=== PATIENT | male | born 1945 | race Caucasian/White ===

== ENCOUNTER → 2016-12-06 | Outpatient (REF) | payer MEDICARE ==
[~2016-12-06] MED LIST: /THIA10TA OR; ACET65TA PO; ASPI81TA83 PO; CHLORTHALIDONE PO; FOLI1TAB OR; HYDR25TA8 PO; LISI5TAB PO; MULTIVIT PO; OYST500T PO; VITAMIN D2; neosporin TOP
[2016-12-06 11:48] LABS: BASO # 0.1 K/mm3 (0.0-0.2); EOS # 0.3 K/mm3 (0.0-0.50); EOS % 4.6 % (0.0-3.0); LARGE UNSTAINED CELL # 0.1 K/mm3 (0.0-0.4); LARGE UNSTAINED CELL % 2.2 % (0.0-4.0); LYMPH # 1.5 K/mm3 (1.5-4.5); LYMPH % 21.9 % (24.0-44.0); MEAN CORPUSCULAR HEMOGLOBIN 31.4 pg (27.0-33.0); MEAN CORPUSCULAR VOLUME 92.3 fl (80.0-96.0); MONO # 0.5 K/mm3 (0.0-0.8); MONO % 8.5 % (0.0-5.0); NEUTROPHILS # 3.8 K/mm3 (1.8-7.7); NEUTROPHILS % 61.7 % (36.0-66.0); PLATELET COUNT, AUTOMATED 244 k/mm3 (150-450); RED CELL DISTRIBUTION WIDTH 13.1 % (11.5-14.5); WHITE BLOOD COUNT 6.1 K/mm3 (4.0-10.0)
[2016-12-06 13:08] LABS: ALBUMIN 3.7 GM/DL (3.2-5.2); ALBUMIN/GLOBULIN RATIO 1.42 (1.00-1.93); ALKALINE PHOSPHATASE 60 U/L (45-117); ALT/SGPT 24 U/L (12-78); ANION GAP 7 MEQ/L (8-16); AST/SGOT 18 U/L (15-37); BILIRUBIN,TOTAL 0.5 MG/DL (0.2-1.0); BLOOD UREA NITROGEN 15 MG/DL (7-18); CALCIUM LEVEL 8.9 MG/DL (8.8-10.2); CARBON DIOXIDE LEVEL 31 MEQ/L (21-32); CHLORIDE LEVEL 96 MEQ/L (98-107); CHOLESTEROL LEVEL 158 MG/DL (<200); CREATININE FOR GFR 0.74 MG/DL (0.70-1.30); GLOMERULAR FILTRATION RATE > 60.0 (>42); GLUCOSE, FASTING 101 MG/DL (83-110); POTASSIUM SERUM 3.8 MEQ/L (3.5-5.1); SODIUM LEVEL 134 MEQ/L (136-145); TOTAL PROTEIN 6.3 GM/DL (6.4-8.2); TRIGLYCERIDES LEVEL 65 MG/DL (<150)
== END ==
LOC: M SFHCPLAZ 08:43
PROVIDERS: ATTEND Family Medicine
DX: I10 Essential (primary) hypertension (principal); E78.5 Hyperlipidemia, unspecified; R73.01 Impaired fasting glucose; Z12.5 Encounter for screening for malignant neoplasm of prostate
CPT/HCPCS: 36415; 80053; 80061; 81001; 82043; 83036; 85025; G0103

== ENCOUNTER → 2016-12-19 | Outpatient (CLI) | payer MEDICARE ==
[~2016-12-19] MED LIST changes: +ATOR40TA PO; +LIDOCAINE 2% INJ 100 MG/5 ML SDV (FOR ANES.) As Ordered ONE; +NS 1,000 ML IV ONE; +PROPOFOL 200 MG/20 ML VIAL As Ordered ONE
--- NOTE | 2016-12-19 09:24 | ROOR ---
Patient Name: Magda Epps Procedure Date: 12/19/2016 9:09 AM Date of : 1945 Age: 71 Room: [facility] Gender: Male Note Status: Finalized Procedure: Colonoscopy Indications: Screening for colorectal malignant neoplasm Providers: Gt NICHOLSON MD Referring MD: Connor Westfall MD Requesting Provider: Medicines: Monitored Anesthesia Care Complications: No immediate complications. Procedure: Pre-Anesthesia Assessment: - The heart rate, respiratory rate, oxygen saturations, blood pressure, adequacy of pulmonary ventilation, and response to care were monitored throughout the procedure. The Colonoscope was introduced through the anus and advanced to the cecum, identified by appendiceal orifice and ileocecal valve. The colonoscopy was performed without difficulty. The patient tolerated the procedure well. The quality of the bowel preparation was good. Findings: The perianal and digital rectal examinations were normal. Internal hemorrhoids were found during retroflexion. The hemorrhoids were medium-sized. Multiple medium-mouthed diverticula were found in the sigmoid colon. The entire examined colon appeared normal on direct and retroflexion views. Impression: - Internal hemorrhoids. - Moderate diverticulosis in the sigmoid colon. - The entire examined colon is normal on direct and retroflexion views. - No specimens collected. Recommendation: - Repeat colonoscopy in 10 years for screening purposes. Gt Nicholson MD Gt NICHOLSON MD 12/19/2016 9:24:25 AM This report has been signed electronically. Number of Addenda: 0 Note Initiated On: 12/19/2016 9:09 AM Estimated Blood Loss: Estimated blood loss: none.
[2016-12-19 10:03] VITALS: BP 138/63
== END | disposition home or self-care (01) ==
LOC: M OPP 08:06
PROVIDERS: ATTEND Internal Medicine Gastroenterology
DX: Z12.11 Encounter for screening for malignant neoplasm of colon (principal); K64.8 Other hemorrhoids; K57.30 Diverticulosis of large intestine without perforation or abscess without bleeding; I10 Essential (primary) hypertension; E78.5 Hyperlipidemia, unspecified; J44.9 Chronic obstructive pulmonary disease, unspecified; E87.1 Hypo-osmolality and hyponatremia; Z87.891 Personal history of nicotine dependence; Z80.42 Family history of malignant neoplasm of prostate; Z80.8 Family history of malignant neoplasm of other organs or systems; Z79.82 Long term (current) use of aspirin; Z79.899 Other long term (current) drug therapy

== ENCOUNTER → 2017-08-26 | Outpatient (REF) | payer MEDICARE ==
[2017-08-26 12:14] LABS: BASO % 0.3 % (0.0-1.0); EOS % 0.5 % (0.0-3.0); HEMATOCRIT 42.6 % (42.0-52.0); HEMOGLOBIN 14.6 g/dl (14.0-18.0); IMMATURE GRANULOCYTE % 0.5 % (0-0); LYMPH # 1.1 10^3/uL (1.5-4.5); LYMPH % 16.9 % (24.0-44.0); MEAN CORPUSCULAR HEMOGLOBIN 30.5 pg (27.0-33.0); MEAN CORPUSCULAR HGB CONC 34.3 g/dl (32.0-36.5); MEAN CORPUSCULAR VOLUME 88.9 fl (80.0-96.0); MONO # 0.9 10^3/uL (0.0-0.8); MONO % 14.1 % (0.0-5.0); NEUTROPHILS # 4.3 10^3/uL (1.8-7.7); NEUTROPHILS % 67.7 % (36.0-66.0); PLATELET COUNT, AUTOMATED 213 10^3/uL (150-450); RED BLOOD COUNT 4.79 10^6/uL (4.30-6.10); RED CELL DISTRIBUTION WIDTH 12.7 % (11.5-14.5); WHITE BLOOD COUNT 6.4 10^3/uL (4.0-10.0)
[2017-08-26 12:29] LABS: APPEARANCE, URINE HAZY (CLEAR); BACTERIA, URINE AUTO NEGATIVE (NEGATIVE); BILIRUBIN, URINE AUTO NEGATIVE (NEGATIVE); BLOOD, URINE BLOOD 3+ (NEGATIVE); COLOR, URINE YELLOW (YELLOW); GLUCOSE, URINE (UA) AUTO NEGATIVE (NEGATIVE); KETONE, URINE AUTO NEGATIVE (NEGATIVE); LEUKOCYTE ESTERASE, URINE AUTO TRACE (NEGATIVE); MUCUS, URINE SMALL (NEGATIVE); NITRITE, URINE AUTO NEGATIVE (NEGATIVE); PROTEIN, URINE AUTO 1+ mg/dL (NEGATIVE); RBC, URINE AUTO TNTC /HPF (0-3); SPECIFIC GRAVITY URINE AUTO 1.019 (1.002-1.035); SQUAMOUS EPITHELIAL CELL UR AU 0 /HPF (0-6); UROBILINOGEN, URINE AUTO 0.2 mg/dL (0.0-2.0); WBC, URINE AUTO 42 /HPF (0-3)
[2017-08-26 12:33] LABS: ESTIMATED AVERAGE GLUCOSE 134 MG/DL (60-110); HEMOGLOBIN A1c 6.3 %
[2017-08-26 12:46] LABS: MAU/CREAT RATIO 76.1 MCG/MG (0.0-30.0)
[2017-08-26 13:10] LABS: ALBUMIN 3.5 GM/DL (3.2-5.2); ALBUMIN/GLOBULIN RATIO 1.17 (1.00-1.93); ALKALINE PHOSPHATASE 73 U/L (45-117); ALT/SGPT 23 U/L (12-78); ANION GAP 11 MEQ/L (8-16); AST/SGOT 21 U/L (7-37); BILIRUBIN,TOTAL 0.4 MG/DL (0.2-1.0); BLOOD UREA NITROGEN 20 MG/DL (7-18); CALCIUM LEVEL 8.6 MG/DL (8.8-10.2); CARBON DIOXIDE LEVEL 28 MEQ/L (21-32); CHLORIDE LEVEL 89 MEQ/L (98-107); CREATININE FOR GFR 0.71 MG/DL (0.70-1.30); GLOMERULAR FILTRATION RATE > 60.0 (>42); GLUCOSE, FASTING 110 MG/DL (70-100); POTASSIUM SERUM 3.9 MEQ/L (3.5-5.1); PSA SCREENING 2.48 NG/ML (< 4.0); SODIUM LEVEL 128 MEQ/L (136-145); TOTAL PROTEIN 6.5 GM/DL (6.4-8.2)
== END ==
LOC: M SFHCPLAZ 09:01
DX: I10 Essential (primary) hypertension (principal); R73.01 Impaired fasting glucose; Z12.5 Encounter for screening for malignant neoplasm of prostate; Z79.899 Other long term (current) drug therapy
CPT/HCPCS: 80053

== ENCOUNTER → 2017-09-04 | Outpatient (REF) | payer MEDICARE ==
[2017-09-04 12:34] LABS: OSMOLALITY SERUM 277 MOSM/KG (280-301)
[2017-09-04 12:45] LABS: AMORPHOUS SEDIMENT SMALL (NEGATIVE); APPEARANCE, URINE CLOUDY (CLEAR); BACTERIA, URINE AUTO 1+ (NEGATIVE); BILIRUBIN, URINE AUTO NEGATIVE (NEGATIVE); BLOOD, URINE BLOOD 1+ (NEGATIVE); CALCIUM OXALATE CRYSTALS SMALL; COLOR, URINE YELLOW (YELLOW); GLUCOSE, URINE (UA) AUTO NEGATIVE (NEGATIVE); KETONE, URINE AUTO NEGATIVE (NEGATIVE); LEUKOCYTE ESTERASE, URINE AUTO 2+ (NEGATIVE); NITRITE, URINE AUTO POSITIVE (NEGATIVE); PROTEIN, URINE AUTO NEGATIVE (NEGATIVE); RBC, URINE AUTO 1 /HPF (0-3); SPECIFIC GRAVITY URINE AUTO 1.009 (1.002-1.035); SQUAMOUS EPITHELIAL CELL UR AU 0 /HPF (0-6); UROBILINOGEN, URINE AUTO 0.2 mg/dL (0.0-2.0); WBC, URINE AUTO 44 /HPF (0-3)
[2017-09-04 12:48] LABS: ALBUMIN 3.4 GM/DL (3.2-5.2); ANION GAP 8 MEQ/L (8-16); BLOOD UREA NITROGEN 10 MG/DL (7-18); CALCIUM LEVEL 9.2 MG/DL (8.8-10.2); CARBON DIOXIDE LEVEL 31 MEQ/L (21-32); CHLORIDE LEVEL 95 MEQ/L (98-107); CREATININE FOR GFR 0.65 MG/DL (0.70-1.30); GLOMERULAR FILTRATION RATE > 60.0 (>42); GLUCOSE, FASTING 130 MG/DL (70-100); POTASSIUM SERUM 3.8 MEQ/L (3.5-5.1); SODIUM LEVEL 134 MEQ/L (136-145)
[2017-09-04 12:49] LABS: OSMOLALITY URINE 384 MOSM/KG (500-800)
== END ==
LOC: M SFHCPLAZ 08:32
DX: R31.29 Other microscopic hematuria (principal); I10 Essential (primary) hypertension
CPT/HCPCS: 83930

== ENCOUNTER → 2017-09-09 | Outpatient (REF) | payer MEDICARE ==
[2017-09-10 16:11] LABS: SODIUM, URINE 34 MEQ/L
[2017-09-10 21:18] LABS: SODIUM 24 HOUR URINE 51 MEQ/24HR (40-220); TOTAL VOLUME, URINE 1500 ML
== END ==
LOC: M SFHCPLAZ 09-10 15:37
DX: I10 Essential (primary) hypertension (principal)
CPT/HCPCS: 81050

== ENCOUNTER → 2017-10-23 | Outpatient (CLI) | payer MEDICARE | LOC: M RAD 08:04 | DX: Z12.2 Encounter for screening for malignant neoplasm of respiratory organs (principal); Z87.891 Personal history of nicotine dependence | CPT/HCPCS: G0297 ==

== ENCOUNTER → 2018-01-01 | Outpatient (REF) | payer MEDICARE ==
[2018-01-01 14:11] LABS: ESTIMATED AVERAGE GLUCOSE 137 MG/DL (60-110); HEMOGLOBIN A1c 6.4 %
[2018-01-01 14:16] LABS: ALBUMIN 3.8 GM/DL (3.2-5.2); ALBUMIN/GLOBULIN RATIO 1.36 (1.00-1.93); ALKALINE PHOSPHATASE 76 U/L (45-117); ALT/SGPT 24 U/L (12-78); ANION GAP 6 MEQ/L (8-16); AST/SGOT 17 U/L (7-37); BILIRUBIN,TOTAL 0.2 MG/DL (0.2-1.0); BLOOD UREA NITROGEN 11 MG/DL (7-18); C REACTIVE PROTEIN QUANTITATIV < 0.30 MG/DL (0.00-0.30); CALCIUM LEVEL 9.1 MG/DL (8.8-10.2); CARBON DIOXIDE LEVEL 30 MEQ/L (21-32); CHLORIDE LEVEL 98 MEQ/L (98-107); CHOLESTEROL LEVEL 171 MG/DL (<200); CHOLESTEROL RISK RATIO 2.478 (<5); CPK CREATINE PHOSPHOKINASE 136 U/L (39-308); CREATININE FOR GFR 0.61 MG/DL (0.70-1.30); FREE T4 0.94 NG/DL (0.76-1.46); GLOMERULAR FILTRATION RATE > 60.0 (>42); GLUCOSE, FASTING 92 MG/DL (70-100); HDL CHOLESTEROL 69 MG/DL (>40); LDL CHOLESTEROL 86.6 MG/DL (<100); NON-HDL-C 102 MG/DL; POTASSIUM SERUM 4.5 MEQ/L (3.5-5.1); SODIUM LEVEL 134 MEQ/L (136-145); TOTAL PROTEIN 6.6 GM/DL (6.4-8.2); TRIGLYCERIDES LEVEL 77 MG/DL (<150)
[2018-01-03 14:10] LABS: INSULIN LEVEL 2.8 uIU/mL (2.6-24.9)
== END ==
LOC: M SFHCPLAZ 11:42
DX: E78.5 Hyperlipidemia, unspecified (principal); R73.01 Impaired fasting glucose
CPT/HCPCS: 82550

== ENCOUNTER → 2018-05-08 | Outpatient (CLI) | payer MEDICARE ==
[~2018-05-08] MED LIST changes: -/THIA10TA OR; -ACET65TA PO; -ASPI81TA83 PO; -ATOR40TA PO; -CHLORTHALIDONE PO; -FOLI1TAB OR; -HYDR25TA8 PO; +ISOVUE-370 76% 100ML VIAL (Q9967) As Ordered; -LIDOCAINE 2% INJ 100 MG/5 ML SDV (FOR ANES.) As Ordered ONE; -LISI5TAB PO; -MULTIVIT PO; -NS 1,000 ML IV ONE; -OYST500T PO; -PROPOFOL 200 MG/20 ML VIAL As Ordered ONE; -VITAMIN D2; -neosporin TOP
== END ==
LOC: M RAD 12:46
DX: J44.9 Chronic obstructive pulmonary disease, unspecified (principal); R91.1 Solitary pulmonary nodule; I10 Essential (primary) hypertension
CPT/HCPCS: Q9967

== ENCOUNTER → 2018-05-08 | Outpatient (REF) | payer MEDICARE ==
[2018-05-08 12:41] LABS: ALBUMIN 3.6 GM/DL (3.2-5.2); ALBUMIN/GLOBULIN RATIO 1.33 (1.00-1.93); ALKALINE PHOSPHATASE 79 U/L (45-117); ALT/SGPT 23 U/L (12-78); ANION GAP 9 MEQ/L (8-16); AST/SGOT 16 U/L (7-37); BILIRUBIN,TOTAL 0.3 MG/DL (0.2-1.0); BLOOD UREA NITROGEN 14 MG/DL (7-18); CALCIUM LEVEL 8.7 MG/DL (8.8-10.2); CARBON DIOXIDE LEVEL 30 MEQ/L (21-32); CHLORIDE LEVEL 93 MEQ/L (98-107); GLOMERULAR FILTRATION RATE > 60.0 (>42); GLUCOSE, FASTING 124 MG/DL (70-100); POTASSIUM SERUM 4.3 MEQ/L (3.5-5.1); SODIUM LEVEL 132 MEQ/L (136-145); TOTAL PROTEIN 6.3 GM/DL (6.4-8.2)
== END ==
LOC: M SFHCPLAZ 10:00
DX: I10 Essential (primary) hypertension (principal)

== ENCOUNTER → 2018-05-20 | Outpatient (REF) | payer MEDICARE ==
[2018-05-20 12:12] LABS: BASO # 0.1 10^3/uL (0.0-0.2); BASO % 0.8 % (0.0-1.0); EOS # 0.2 10^3/uL (0.0-0.50); EOS % 2.9 % (0.0-3.0); HEMATOCRIT 43.2 % (42.0-52.0); HEMOGLOBIN 14.8 g/dl (13.5-17.5); IMMATURE GRANULOCYTE % 0.4 % (0-3.0); LYMPH # 0.9 10^3/uL (1.5-4.5); LYMPH % 11.5 % (24.0-44.0); MEAN CORPUSCULAR HEMOGLOBIN 29.8 pg (27.0-33.0); MEAN CORPUSCULAR HGB CONC 34.3 g/dl (32.0-36.5); MEAN CORPUSCULAR VOLUME 86.9 fl (80.0-96.0); MONO # 0.8 10^3/uL (0.0-0.8); MONO % 10.8 % (0.0-5.0); NEUTROPHILS # 5.5 10^3/uL (1.8-7.7); NEUTROPHILS % 73.6 % (36.0-66.0); PLATELET COUNT, AUTOMATED 290 10^3/uL (150-450); RED BLOOD COUNT 4.97 10^6/uL (4.30-6.10); RED CELL DISTRIBUTION WIDTH 13.2 % (11.5-14.5); WHITE BLOOD COUNT 7.5 10^3/uL (4.0-10.0)
[2018-05-20 12:17] LABS: HEMATOCRIT 43.2 % (42.0-52.0)
[2018-05-20 12:22] LABS: AMORPHOUS SEDIMENT LARGE (NEGATIVE); APPEARANCE, URINE CLOUDY (CLEAR); BACTERIA, URINE AUTO 1+ (NEGATIVE); BILIRUBIN, URINE AUTO NEGATIVE (NEGATIVE); BLOOD, URINE BLOOD 2+ (NEGATIVE); COLOR, URINE YELLOW (YELLOW); GLUCOSE, URINE (UA) AUTO NEGATIVE (NEGATIVE); KETONE, URINE AUTO NEGATIVE (NEGATIVE); LEUKOCYTE ESTERASE, URINE AUTO 3+ (NEGATIVE); MUCUS, URINE SMALL (NEGATIVE); NITRITE, URINE AUTO POSITIVE (NEGATIVE); PROTEIN, URINE AUTO 1+ mg/dL (NEGATIVE); RBC, URINE AUTO 35 /HPF (0-3); SPECIFIC GRAVITY URINE AUTO 1.011 (1.002-1.035); SQUAMOUS EPITHELIAL CELL UR AU 0 /HPF (0-6); UROBILINOGEN, URINE AUTO 0.2 mg/dL (0.0-2.0); WBC, URINE AUTO TNTC /HPF (0-3)
[2018-05-20 12:30] LABS: ESTIMATED AVERAGE GLUCOSE 131 MG/DL (60-110); HEMOGLOBIN A1c 6.2 %
[2018-05-20 13:05] LABS: ALBUMIN 3.7 GM/DL (3.2-5.2); ALBUMIN/GLOBULIN RATIO 1.28 (1.00-1.93); ALKALINE PHOSPHATASE 89 U/L (45-117); ALT/SGPT 25 U/L (12-78); ANION GAP 10 MEQ/L (8-16); AST/SGOT 18 U/L (7-37); BILIRUBIN,TOTAL 0.4 MG/DL (0.2-1.0); BLOOD UREA NITROGEN 14 MG/DL (7-18); CALCIUM LEVEL 9.1 MG/DL (8.8-10.2); CARBON DIOXIDE LEVEL 30 MEQ/L (21-32); CHLORIDE LEVEL 90 MEQ/L (98-107); GLOMERULAR FILTRATION RATE > 60.0 (>42); GLUCOSE, FASTING 103 MG/DL (70-100); POTASSIUM SERUM 4.3 MEQ/L (3.5-5.1); PSA SCREENING 4.82 NG/ML (< 4.0); SODIUM LEVEL 130 MEQ/L (136-145); TOTAL PROTEIN 6.6 GM/DL (6.4-8.2)
[2018-05-22 10:25] LABS: PRETREATED FOLATE FOR RBCFOL 14.6 NG/ML; RBC FOLATE 709.7 NG/ML (280-791)
[2018-05-23 14:32] LABS: VITAMIN B1 LEVEL WHOLE BLOOD 230.8 nmol/L (66.5-200.0)
== END ==
LOC: M SFHCPLAZ 08:33
DX: R31.0 Gross hematuria (principal); E87.1 Hypo-osmolality and hyponatremia; R73.01 Impaired fasting glucose; Z12.5 Encounter for screening for malignant neoplasm of prostate
CPT/HCPCS: 80053

== ENCOUNTER → 2018-05-22 | Outpatient (REF) | payer MEDICARE ==
[2018-05-22 12:19] LABS: AMORPHOUS SEDIMENT LARGE (NEGATIVE); APPEARANCE, URINE TURBID (CLEAR); BACTERIA, URINE AUTO 1+ (NEGATIVE); BILIRUBIN, URINE AUTO NEGATIVE (NEGATIVE); BLOOD, URINE BLOOD 2+ (NEGATIVE); COLOR, URINE YELLOW (YELLOW); GLUCOSE, URINE (UA) AUTO NEGATIVE (NEGATIVE); KETONE, URINE AUTO NEGATIVE (NEGATIVE); LEUKOCYTE ESTERASE, URINE AUTO 3+ (NEGATIVE); MUCUS, URINE SMALL (NEGATIVE); NITRITE, URINE AUTO POSITIVE (NEGATIVE); PROTEIN, URINE AUTO 1+ mg/dL (NEGATIVE); RBC, URINE AUTO 109 /HPF (0-3); SPECIFIC GRAVITY URINE AUTO 1.012 (1.002-1.035); SQUAMOUS EPITHELIAL CELL UR AU 0 /HPF (0-6); UROBILINOGEN, URINE AUTO 0.2 mg/dL (0.0-2.0); WBC, URINE AUTO TNTC /HPF (0-3)
== END ==
LOC: M SFHCPLAZ 11:25
DX: N41.0 Acute prostatitis (principal)
CPT/HCPCS: 81001

== ENCOUNTER → 2018-06-02 | Outpatient (CLI) | payer MEDICARE | LOC: M RAD 10:14 | DX: R31.0 Gross hematuria (principal); K57.30 Diverticulosis of large intestine without perforation or abscess without bleeding; M47.896 Other spondylosis, lumbar region; N32.89 Other specified disorders of bladder; N21.0 Calculus in bladder | CPT/HCPCS: Q9967 ==

== ENCOUNTER → 2018-06-08 | Outpatient (REF) | payer MEDICARE | LOC: M SMT 17:08 | DX: N32.89 Other specified disorders of bladder (principal) | CPT/HCPCS: 88108 ==

== ENCOUNTER → 2018-07-10 | Outpatient (CLI) | payer MEDICARE ==
[~2018-07-10] MED LIST changes: +/THIA10TA OR; +ACET65TA PO; +ASPI1TAB PO; +ASPI81TA83 PO; +ATOR1TAB19 PO; +ATOR40TA75 PO; +CALC500T49 PO; +CHLO125TA PO; +CHLORTHALIDONE PO; +FOLI1TAB OR; +HYDR25TA8 PO; -ISOVUE-370 76% 100ML VIAL (Q9967) As Ordered; +LISI10TA4 PO; +LISI5TAB PO; +MULT1TAB10 PO; +MULTIVIT PO; +OYST500T PO; +PROAAER10 INH; +VITA100T92 PO; +VITAMIN D2; +neosporin TOP
[2018-07-10 17:18] LABS: ALBUMIN 3.9 GM/DL (3.2-5.2); ALT/SGPT 28 U/L (12-78); BASO # 0.1 10^3/uL (0.0-0.2); BASO % 0.8 % (0.0-1.0); BILIRUBIN,TOTAL 0.3 MG/DL (0.2-1.0); BLOOD UREA NITROGEN 18 MG/DL (7-18); CALCIUM LEVEL 9.1 MG/DL (8.8-10.2); CARBON DIOXIDE LEVEL 34 MEQ/L (21-32); CHLORIDE LEVEL 91 MEQ/L (98-107); CREATININE FOR GFR 0.83 MG/DL (0.70-1.30); EOS # 0.3 10^3/uL (0.0-0.50); GLOMERULAR FILTRATION RATE > 60.0 (>42); GLUCOSE, FASTING 180 MG/DL (70-100); HEMATOCRIT 44.2 % (42.0-52.0); HEMOGLOBIN 14.7 g/dl (13.5-17.5); LYMPH # 1.8 10^3/uL (1.5-4.5); LYMPH % 19.5 % (24.0-44.0); MEAN CORPUSCULAR HEMOGLOBIN 29.3 pg (27.0-33.0); MEAN CORPUSCULAR HGB CONC 33.3 g/dl (32.0-36.5); MEAN CORPUSCULAR VOLUME 88.2 fl (80.0-96.0); MONO # 0.8 10^3/uL (0.0-0.8); MONO % 8.4 % (0.0-5.0); NEUTROPHILS # 6.1 10^3/uL (1.8-7.7); NEUTROPHILS % 67.9 % (36.0-66.0); PLATELET COUNT, AUTOMATED 275 10^3/uL (150-450); POTASSIUM SERUM 3.9 MEQ/L (3.5-5.1); RED BLOOD COUNT 5.01 10^6/uL (4.30-6.10); SODIUM LEVEL 132 MEQ/L (136-145); TOTAL PROTEIN 6.6 GM/DL (6.4-8.2)
[2018-07-10 17:33] LABS: INR 0.93; PARTIAL THROMBOPLASTIN TIME 31.3 SECONDS (25.4-37.6); PROTHROMBIN TIME 12.5 SECONDS (12.1-14.4)
[2018-07-10 19:56] LABS: APPEARANCE, URINE HAZY (CLEAR); BACTERIA, URINE AUTO NEGATIVE (NEGATIVE); BILIRUBIN, URINE AUTO NEGATIVE (NEGATIVE); BLOOD, URINE BLOOD 2+ (NEGATIVE); COLOR, URINE YELLOW (YELLOW); GLUCOSE, URINE (UA) AUTO 1+ mg/dL (NEGATIVE); KETONE, URINE AUTO NEGATIVE (NEGATIVE); LEUKOCYTE ESTERASE, URINE AUTO NEGATIVE (NEGATIVE); MUCUS, URINE SMALL (NEGATIVE); NITRITE, URINE AUTO NEGATIVE (NEGATIVE); PROTEIN, URINE AUTO 1+ mg/dL (NEGATIVE); RBC, URINE AUTO TNTC /HPF (0-3); SPECIFIC GRAVITY URINE AUTO 1.017 (1.002-1.035); SQUAMOUS EPITHELIAL CELL UR AU 0 /HPF (0-6); UROBILINOGEN, URINE AUTO 0.2 mg/dL (0.0-2.0); WBC, URINE AUTO 9 /HPF (0-3)
== END ==
LOC: M SMT 13:28
PROVIDERS: ATTEND Family Medicine
DX: I10 Essential (primary) hypertension (principal); N32.89 Other specified disorders of bladder; R31.0 Gross hematuria

== ENCOUNTER 2018-07-16 11:25 | Day surgery (SDC) | payer MEDICARE ==
[~2018-07-16] VITALS: Ht 172.7 cm; Wt 61.6 kg
[~2018-07-16 11:25] MED LIST changes: +GLYCOPYRROLATE INJ 0.2 MG/ML 2 ML VIAL As Ordered ONE; +LIDOCAINE 2% INJ 100 MG/5 ML SDV (FOR ANES.) As Ordered ONE; +MIDAZOLAM INJ 2 MG/2 ML VIAL (J2250) As Ordered ONE; +NEOSTIGMINE 10 MG/10 ML VIAL (J2710) As Ordered ONE; +ONDANSETRON 4MG/2ML VIAL (J2405) As Ordered ONE; +PROPOFOL 200 MG/20 ML VIAL As Ordered ONE; +ROCURONIUM BROMIDE 50 MG/5 ML VIAL As Ordered ONE; +dexameTHASONE 4 MG/ML 1ML VIAL (J1100) As Ordered ONE; +fentaNYL 100 MCG/2 ML INJECTION (J3010) As Ordered ONE
[2018-07-16] MEDS ORDERED: LR 1,000 ML IV ONE (11:45)
[2018-07-16] MEDS ORDERED: ePHEDrine SULFATE 25 MG/5 ML(5MG/ML) SYRINGE As Ordered ONE (14:47)
[2018-07-16] MEDS ORDERED: fentaNYL 100 MCG/2 ML INJECTION (J3010) As Ordered ONE (14:53)
[2018-07-16] MEDS ORDERED: FUROSEMIDE 100 MG/10 ML VIAL (J1940) As Ordered ONE (15:53)
[2018-07-16] MEDS ORDERED: METOCLOPRAMIDE INJ 10MG/2ML VIAL (J2765) IV PRN (16:45)
[2018-07-16] MEDS ORDERED: LR 1,000 ML IV SCH (16:45)
[2018-07-16] MEDS ORDERED: fentaNYL 100 MCG/2 ML INJECTION (J3010) IV PRN (16:45)
[2018-07-16] MEDS ORDERED: PERCOCET 5MG/325MG TAB PO PRN (16:45)
[2018-07-16] MEDS ORDERED: MEPERIDINE INJ 25 MG/ML VIAL (J2175) IV PRN (16:45)
[2018-07-16] MEDS ORDERED: ONDANSETRON 4MG/2ML VIAL (J2405) IV PRN (16:45)
[2018-07-16] MEDS ORDERED: oxyBUTYnin 5 MG TAB PO PRN (16:45)
[2018-07-16] MEDS ORDERED: ACETAMINOPHEN TAB 650MG DOSE (2X325MG) PO PRN (16:45)
[2018-07-16 19:40] VITALS: BP 104/63
--- NOTE | 2018-07-17 19:35 | RO ---
DATE OF PROCEDURE: 07/16/2018 PREPROCEDURE DIAGNOSIS: Bladder tumor, bladder stones. POSTPROCEDURE DIAGNOSIS: Bladder tumor, bladder stones. PROCEDURE: Cystoscopy, transurethral resection of bladder tumor (greater than 5 cm), cystolitholapaxy, bimanual examination under anesthesia. SURGEON: Nicholas Siddiqui MD [facility]: None. ANESTHESIA: General. OPERATIVE INDICATIONS: This is a 73-year-old male who on recent CT urogram was found to have two large bladder stones as well as a large bladder tumor along the anterior wall. He is brought to the operating room today for the above listed procedure. DESCRIPTION OF PROCEDURE: The patient was brought to the operating room and general anesthesia was induced. Prophylactic antibiotics were infused. He was then placed in the dorsal lithotomy position and then a bimanual digital rectal examination under anesthesia was performed. It was notable for prostate which was about 40 grams. There were no nodules. There were no palpable bladder masses and the bladder was freely mobile. At this point, the patient was prepped and draped in the usual sterile fashion. A rigid cystoscope was inserted into the urethral meatus and advanced to the bladder. The bladder was then thoroughly examined and was notable for two large bladder stones and the very large tumor on the anterior wall of the bladder. The bladder was examined with both the 30 and the 70 degrees lenses. At this point, the cystoscope was removed and a nephroscope was inserted. At this point, a CyberWand was utilized to fragment the bladder stones into tiny pieces and all the stones were suctioned out. Once all the bladder stones were removed, the nephroscope was traded out for a resectoscope. Once the resectoscope was inserted I then utilized it to resect the bladder tumor completely. It did appear that I was able to resect deep enough into the bladder muscle layer. Given the large size of the tumor, as well as bleeding it was difficult to determine whether or not I had completely resected all of the tumor but it did appear that the majority of the tumor was removed. Once that was done all tumor specimens were then removed using the Evelyn evacuator. After all the specimens were removed the coagulation current then utilized to obtain hemostasis. Once satisfied with hemostasis, the resectoscope was removed and an #18-St Lucian Soto catheter was inserted into the bladder. The balloon was filled with 10 mL of sterile water. The catheter then connected to gravity drainage and this marked the conclusion of the procedure. The patient was then taken out of the dorsal lithotomy position, awakened from anesthesia and transported to the recovery room in stable condition. ESTIMATED BLOOD LOSS: 10 mL COMPLICATIONS: None. SPECIMENS: Bladder stones, bladder tumor. PLAN: The patient will followup in the clinic in approximately two weeks for catheter removal and to discuss his pathology results. KEELY
== END 2018-07-16 20:00 | disposition home or self-care (01) ==
LOC: M SDC 11:25
PROVIDERS: ATTEND Urology
DX: C67.9 Malignant neoplasm of bladder, unspecified (principal); N21.0 Calculus in bladder; I10 Essential (primary) hypertension; I25.2 Old myocardial infarction; R31.0 Gross hematuria; E87.1 Hypo-osmolality and hyponatremia; L30.9 Dermatitis, unspecified; J44.9 Chronic obstructive pulmonary disease, unspecified; R73.01 Impaired fasting glucose; R94.5 Abnormal results of liver function studies; E78.00 Pure hypercholesterolemia, unspecified; Z79.899 Other long term (current) drug therapy; Z79.82 Long term (current) use of aspirin; Z87.891 Personal history of nicotine dependence
CPT/HCPCS: 52240; 52318; 82360; 88300; 88307; J0690; J1100; J1940; J2250; J2405; J2710; J3010

== ENCOUNTER → 2018-09-16 | Outpatient (CLI) | payer MEDICARE ==
[~2018-09-16] MED LIST changes: +CIPR500T39 PO; -GLYCOPYRROLATE INJ 0.2 MG/ML 2 ML VIAL As Ordered ONE; -LIDOCAINE 2% INJ 100 MG/5 ML SDV (FOR ANES.) As Ordered ONE; -MIDAZOLAM INJ 2 MG/2 ML VIAL (J2250) As Ordered ONE; -NEOSTIGMINE 10 MG/10 ML VIAL (J2710) As Ordered ONE; +ONDA8TAB8 PO; -ONDANSETRON 4MG/2ML VIAL (J2405) As Ordered ONE; +POTA1TAB14 PO; +PROHANCE 279.3MG/ML 15ML VIAL (A9576) As Ordered ONE; -PROPOFOL 200 MG/20 ML VIAL As Ordered ONE; -ROCURONIUM BROMIDE 50 MG/5 ML VIAL As Ordered ONE; +TAMS1CAP17 PO; -dexameTHASONE 4 MG/ML 1ML VIAL (J1100) As Ordered ONE; -fentaNYL 100 MCG/2 ML INJECTION (J3010) As Ordered ONE
--- NOTE | 2018-09-17 08:40 | REP ---
MRI BRAIN WITHOUT AND WITH CONTRAST: HISTORY: Bladder carcinoma. CONTRAST: ProHance 12.4 mL. Several punctate areas of increased signal intensity on T2-weighted images are present in the periventricular and subcortical white matter. This represents small vessel ischemic disease. There is no intraparenchymal hemorrhage, infarct, mass or midline shift. There is no abnormal enhancement. The ventricular system and cortical sulci are dilated consistent with minimal volume loss. There is no extracerebral collection. Mucosal thickening is present in the ethmoid and maxillary sinuses. IMPRESSION: 1. Minimal small vessel ischemic disease. 2. Minimal volume loss. Electronically Signed by Sundar Joshi MD 09/17/2018 08:51 A
== END ==
LOC: M RAD 16:28
PROVIDERS: ATTEND Internal Medicine Hematology & Oncology
DX: C67.9 Malignant neoplasm of bladder, unspecified (principal); I67.82 Cerebral ischemia; G31.9 Degenerative disease of nervous system, unspecified; E87.1 Hypo-osmolality and hyponatremia
CPT/HCPCS: 70553; A9576

== ENCOUNTER → 2018-09-25 | Outpatient (REF) | payer MEDICARE ==
[~2018-09-25] MED LIST changes: -PROHANCE 279.3MG/ML 15ML VIAL (A9576) As Ordered ONE
[2018-09-25 13:03] LABS: SODIUM,RANDOM URINE 102 MEQ/L
[2018-09-25 13:14] LABS: OSMOLALITY URINE 567 MOSM/KG (500-800)
[2018-09-25 13:16] LABS: OSMOLALITY SERUM 293 MOSM/KG (280-301)
[2018-09-25 13:54] LABS: ALBUMIN 3.4 GM/DL (3.2-5.2); BLOOD UREA NITROGEN 35 MG/DL (7-18); CALCIUM LEVEL 8.4 MG/DL (8.8-10.2); CARBON DIOXIDE LEVEL 28 MEQ/L (21-32); CHLORIDE LEVEL 101 MEQ/L (98-107); CREATININE FOR GFR 1.19 MG/DL (0.70-1.30); GLOMERULAR FILTRATION RATE > 60.0 (>42); GLUCOSE, FASTING 88 MG/DL (70-100); PHOSPHORUS LEVEL 4.2 MG/DL (2.5-4.9); POTASSIUM SERUM 5.5 MEQ/L (3.5-5.1); SODIUM LEVEL 136 MEQ/L (136-145)
== END ==
LOC: M SFHCPLAZ 09:10
PROVIDERS: ATTEND Nurse Practitioner Family
DX: E87.1 Hypo-osmolality and hyponatremia (principal)

== ENCOUNTER 2018-10-26 09:28 | Emergency (ER) | payer MEDICARE ==
[~2018-10-26] VITALS: Ht 172.7 cm; Wt 60.9 kg
[~2018-10-26 09:28] MED LIST changes: -ASPI1TAB PO; +ASPI81TA26 PO; +VITA100T89 PO; -VITA100T92 PO
[2018-10-26 10:11] LABS: BASO % 1.4 % (0.0-1.0); EOS % 0.7 % (0.0-3.0); HEMATOCRIT 24.2 % (42.0-52.0); HEMOGLOBIN 7.9 g/dl (13.5-17.5); LYMPH # 0.7 10^3/uL (1.5-4.5); LYMPH % 25.2 % (24.0-44.0); MEAN CORPUSCULAR HEMOGLOBIN 29.4 pg (27.0-33.0); MEAN CORPUSCULAR HGB CONC 32.6 g/dl (32.0-36.5); MONO # 0.2 10^3/uL (0.0-0.8); MONO % 7.4 % (0.0-5.0); NEUTROPHILS # 1.8 10^3/uL (1.8-7.7); NEUTROPHILS % 64.6 % (36.0-66.0); PLATELET COUNT, AUTOMATED 411 10^3/uL (150-450); RED BLOOD COUNT 2.69 10^6/uL (4.30-6.10); WHITE BLOOD COUNT 2.8 10^3/uL (4.0-10.0)
--- NOTE | 2018-10-26 10:17 | REP ---
CT of the abdomen pelvis without IV or bowel contrast: Comparison is 06/02/2018. The patient has history of bladder carcinoma and currently has acute renal failure, concern for urinary obstruction. The previous bladder tumor along the anterior bladder wall is no longer present. There are calcifications along the anterior bladder wall in the location of the previous tumor. No new bladder masses are identified. There is no hydronephrosis or hydroureter. There is no perinephric stranding. The kidneys are normal size. The visualized lung valderrama are unremarkable. The unenhanced hepatic parenchyma, gallbladder, pancreas, spleen, adrenals, and abdominal aorta are unremarkable. There is no bowel distension or obstruction. Mesentery is unremarkable. There is no retroperitoneal or mesenteric adenopathy. Pelvis: There is no pelvic adenopathy. No ascites. There are lucent lesions in the T10, L3, L4 and S1 vertebral segments, unchanged, possibly skeletal metastases. Impression: The previous bladder mass is no longer identified and there are calcifications in the anterior bladder wall and the location of the previous mass. There is no hydronephrosis, perinephric stranding or hydroureter. The kidneys are normal size. Possible skeletal metastases as described. Electronically Signed by Trey Sweeney MD 10/26/2018 10:07 A
[2018-10-26 10:40] LABS: CALCIUM LEVEL 8.5 MG/DL (8.8-10.2); CREATININE FOR GFR 3.22 MG/DL (0.70-1.30); GLOMERULAR FILTRATION RATE 20.2 (>42); POTASSIUM SERUM 4.5 MEQ/L (3.5-5.1)
[2018-10-26 11:57] VITALS: BP 128/64
--- NOTE | 2018-10-27 12:49 | ED PDOC ---
Post-Departure Follow-Up dr lemus faxed formal report of ct abd/p for fu Quincy Galarza MD Oct 27, 2018 12:49
[2018-11-02] MEDS ORDERED: MULT-40 PO (08:03)
[2018-11-02] MEDS ORDERED: CALC500C16 PO (08:03)
--- NOTE | 2018-11-06 16:09 | ED PDOC ---
Post-Departure Follow-Up dr lemus and dr deleon faxed formal report of ct abd/p for fu Quincy Galarza MD Nov 06, 2018 16:09
[2018-11-20] MEDS ORDERED: LEVO500T3 PO (09:43)
[2018-12-16] MEDS ORDERED: PRED10TA2 PO (13:15)
== END 2018-10-26 12:04 | disposition home or self-care (01) ==
LOC: M ED 09:28
DX: D70.1 Agranulocytosis secondary to cancer chemotherapy (principal)

== ENCOUNTER 2018-10-27 08:19 | Outpatient (CLI) | payer MEDICARE ==
[2018-10-27] VITALS (8 sets, daily range): BP systolic 109–150; BP diastolic 57–75
[~2018-10-27] VITALS: Ht 172.7 cm; Wt 60.8 kg
[2018-11-02] MEDS ORDERED: MULT-40 PO (08:03)
[2018-11-02] MEDS ORDERED: CALC500C16 PO (08:03)
== END 2018-10-27 13:45 | disposition home or self-care (01) ==
LOC: M INFU 08:19
PROVIDERS: ATTEND Family Medicine
DX: D64.9 Anemia, unspecified (principal)
CPT/HCPCS: 36430; 86920; P9016

== ENCOUNTER → 2018-11-19 | Outpatient (REF) | payer MEDICARE ==
[~2018-11-19] MED LIST changes: +CALC500C16 PO; +LEVO500T3 PO; +MULT-40 PO
[2018-11-19 14:57] LABS: PERCENT SATURATION 24.6 % (19.7-50.0)
== END ==
LOC: M LAB REF 13:20
PROVIDERS: ATTEND Internal Medicine Nephrology
DX: N39.0 Urinary tract infection, site not specified (principal); D50.9 Iron deficiency anemia, unspecified

== ENCOUNTER → 2018-12-09 | Outpatient (CLI) | payer MEDICARE ==
[~2018-12-09] MED LIST changes: +PRED10TA2 PO
--- NOTE | 2018-12-10 15:06 | REP ---
REASON FOR EXAM: History of bladder carcinoma. Prior CT scan abdomen/pelvis, 10/26/2018, reviewed. There are no prior PET/CTs for comparison. After the intravenous administration of 9.8 mCi of FDG-18, triplane whole body PET/CT was performed from the skull base to the midthigh. Patient has recently undergone a chemotherapeutic regimen. There is scattered hypermetabolism throughout the skeletal structures consistent with chemo reactive change. There is hypermetabolism in the sigmoid colon which is not unusual. There is no hypermetabolic pelvic adenopathy. There is no abnormal hypermetabolic activity seen in the abdomen, chest, or neck. IMPRESSION: Chemo reactive marrow changes as described above. There is hypermetabolic activity in the pelvis, however, it is confined to the rectosigmoid region which is not unusual but would need to be correlated clinically if colonic infectious etiology is of clinical concern. Electronically Signed by Javier Hu DO 12/10/2018 03:28 P
== END ==
LOC: M PLARAD 11:34
PROVIDERS: ATTEND Internal Medicine Hematology & Oncology
DX: C67.8 Malignant neoplasm of overlapping sites of bladder (principal); Z92.21 Personal history of antineoplastic chemotherapy
CPT/HCPCS: 78815; A9552

== ENCOUNTER → 2018-12-15 | Outpatient (CLI) | payer MEDICARE ==
--- NOTE | 2018-12-15 13:19 | REP ---
Clinical: Acute renal failure. Technique: Real time jamison scale ultrasound examination using curved array transducer. Findings: Bilateral kidneys are normal in echogenicity and reniform shape without hydronephrosis, nephrolithiasis, cystic or renal mass lesion. Right kidney measures 11.6 x 5.7 x 4.2 cm. Left kidney measures 10.5 x 5.2 x 6.6 cm. The prostate gland measures 4.1 x 2.6 x 4.5 cm (25 ml). Hyperechoic bladder mass measures 2.1 x 1.4 x 1.4 cm along the left bladder wall. Impression: 1. Normal appearance of the kidneys without hydronephrosis. 2. Bladder wall mass. History of bladder cancer noted. Electronically Signed by Lorenzo Dooley MD 12/15/2018 01:11 P
== END ==
LOC: M RAD 07:52
PROVIDERS: ATTEND Internal Medicine Nephrology
DX: N17.9 Acute kidney failure, unspecified (principal); N32.89 Other specified disorders of bladder; Z85.51 Personal history of malignant neoplasm of bladder

== ENCOUNTER → 2018-12-29 | Outpatient (REF) | payer MEDICARE ==
[2018-12-29 15:53] LABS: HEMATOCRIT 23.3 % (42.0-52.0); HEMOGLOBIN 7.3 g/dl (13.5-17.5); MEAN CORPUSCULAR HEMOGLOBIN 30.8 pg (27.0-33.0); MEAN CORPUSCULAR HGB CONC 31.3 g/dl (32.0-36.5); MEAN CORPUSCULAR VOLUME 98.3 fl (80.0-96.0); PLATELET COUNT, AUTOMATED 346 10^3/uL (150-450); RED BLOOD COUNT 2.37 10^6/uL (4.30-6.10); WHITE BLOOD COUNT 8.4 10^3/uL (4.0-10.0)
[2018-12-29 16:00] LABS: ALBUMIN 2.7 GM/DL (3.2-5.2); BILIRUBIN,TOTAL 0.2 MG/DL (0.2-1.0); CREATININE FOR GFR 2.77 MG/DL (0.70-1.30); POTASSIUM SERUM 4.6 MEQ/L (3.5-5.1); TOTAL PROTEIN 5.1 GM/DL (6.4-8.2)
== END ==
LOC: M LABDRAWP 13:24
PROVIDERS: ATTEND Nurse Practitioner Family
DX: D64.9 Anemia, unspecified (principal); N18.3 Chronic kidney disease, stage 3 (moderate)

== ENCOUNTER → 2019-01-25 | Outpatient (CLI) | payer MEDICARE ==
[~2019-01-25] MED LIST changes: +ENOX40IN3 SC; +IRON15CH PO; +ULTR0.0510 TOP
--- NOTE | 2019-01-26 07:15 | REP ---
CT ABDOMEN AND PELVIS WITHOUT CONTRAST: CT abdomen and pelvis performed. No oral or IV contrast was administered. Sagittal and coronal reconstruction images are performed. Comparison is made with a prior study of 10/26/2018. Visualized lung bases demonstrate no infiltrate. The liver demonstrates no gross abnormality, nor does the spleen, adrenals, pancreas or kidneys. There is no hydronephrosis bilaterally. There is atherosclerotic calcification of the abdominal aorta without aneurysm. No gross adenopathy is seen although evaluation is limited without IV contrast. No gross bowel wall abnormality is seen. The patient has had interval resection of the urinary bladder and probable urostomy. An ostomy is see exiting the right mid abdomen region and there are surgical sutures along underlying bowel. Right inguinal hernia is present containing a bowel loop. There is no evidence of bowel obstruction. There are degenerative changes of the spine. Minimally prominent lymph nodes are seen in the left inguinal region measuring up to 11 mm in short axis. Mild scattered free fluid is seen in the abdomen and pelvis. IMPRESSION: Minimally prominent left inguinal lymph nodes are of doubtful significance measuring up to 11 mm in short axis. Postsurgical changes as discussed above. No other gross mass or adenopathy although the study is limited without oral or IV contrast. There is very mild scattered free fluid in the abdomen and pelvis. Small right inguinal hernia contains a nonobstructed bowel loop. Electronically Signed by Trey López MD 01/27/2019 09:41 A
== END ==
LOC: M RAD 10:05
PROVIDERS: ATTEND Urology
DX: C67.9 Malignant neoplasm of bladder, unspecified (principal)
CPT/HCPCS: 36415; 74176; 80053; 85027; G0463

== ENCOUNTER → 2019-04-14 | Outpatient (REF) | payer MEDICARE ==
[2019-04-14 12:51] LABS: BASO # 0.1 10^3/uL (0.0-0.2); BASO % 1.2 % (0.0-1.0); EOS # 0.3 10^3/uL (0.0-0.5); EOS % 4.6 % (0.0-3.0); HEMATOCRIT 37.6 % (42.0-52.0); HEMOGLOBIN 12.1 g/dl (13.5-17.5); LYMPH # 1.5 10^3/uL (1.5-5.0); LYMPH % 26.1 % (24.0-44.0); MEAN CORPUSCULAR HEMOGLOBIN 31.2 pg (27.0-33.0); MEAN CORPUSCULAR HGB CONC 32.2 g/dl (32.0-36.5); MEAN CORPUSCULAR VOLUME 96.9 fl (80.0-96.0); MONO # 0.7 10^3/uL (0.0-0.8); MONO % 12.9 % (0.0-5.0); NEUTROPHILS # 3.1 10^3/uL (1.5-8.5); NEUTROPHILS % 54.8 % (36.0-66.0); PLATELET COUNT, AUTOMATED 222 10^3/uL (150-450); RED BLOOD COUNT 3.88 10^6/uL (4.30-6.10); WHITE BLOOD COUNT 5.7 10^3/uL (4.0-10.0)
[2019-04-14 13:04] LABS: ALBUMIN 3.5 GM/DL (3.2-5.2); CALCIUM LEVEL 8.6 MG/DL (8.8-10.2); CHOLESTEROL RISK RATIO 1.987 (<5); CREATININE FOR GFR 1.68 MG/DL (0.70-1.30); GLOMERULAR FILTRATION RATE 42.6 (>42); POTASSIUM SERUM 4.5 MEQ/L (3.5-5.1)
[2019-04-14 13:32] LABS: HEMOGLOBIN A1c 5.7 %
== END ==
LOC: M SFHCPLAZ 10:27
PROVIDERS: ATTEND Family Medicine
DX: E78.5 Hyperlipidemia, unspecified (principal); D63.8 Anemia in other chronic diseases classified elsewhere; N18.3 Chronic kidney disease, stage 3 (moderate)

== ENCOUNTER → 2019-04-22 | Outpatient (REF) | payer MEDICARE ==
[~2019-04-22] MED LIST changes: +ATIV1TAB7 PO; +HALO0.052 TOP; +XANA0.25 PO
[2019-04-22 14:15] LABS: PERCENT SATURATION 39.3 % (19.7-50.0)
== END ==
LOC: M LAB REF 13:05
PROVIDERS: ATTEND Internal Medicine Nephrology
DX: D50.9 Iron deficiency anemia, unspecified (principal)
CPT/HCPCS: 82728; 83550; 90682; G0008; G0463

== ENCOUNTER → 2019-04-23 | Outpatient (CLI) | payer MEDICARE ==
--- NOTE | 2019-04-14 13:19 | REP ---
PA and lateral chest: Comparisons are the PA and lateral chest of 08/25/[address] of 05/08/2018. Lung valderrama are chronically hyperinflated but otherwise clear. Cardiac size is normal. The korin, mediastinum, and skeletal structures are unremarkable. Impression: Chronic hyperinflation. Otherwise, negative PA and lateral chest. Electronically Signed by Trey Sweeney MD 04/14/2019 01:11 P
== END ==
LOC: M RAD 04-14 11:50
PROVIDERS: ATTEND Internal Medicine Medical Oncology
DX: D61.810 Antineoplastic chemotherapy induced pancytopenia (principal); C67.9 Malignant neoplasm of bladder, unspecified; Z79.899 Other long term (current) drug therapy; E78.5 Hyperlipidemia, unspecified; D63.8 Anemia in other chronic diseases classified elsewhere; N18.3 Chronic kidney disease, stage 3 (moderate)

== ENCOUNTER → 2019-04-30 | Outpatient (CLI) | payer MEDICARE ==
[~2019-04-30] MED LIST changes: -ATIV1TAB7 PO; -HALO0.052 TOP
--- NOTE | 2019-04-30 17:02 | REP ---
MRI ABDOMEN WITHOUT CONTRAST: Multiple sequences obtained in the axial and coronal planes without the use of intravenous contrast. Comparison is made with prior CT abdomen and pelvis 01/25/2019. No gross mass is seen in the liver. The gallbladder is grossly unremarkable. The spleen, adrenals and pancreas are unremarkable. There is no evidence of dilatation of the common bile duct or pancreatic duct. A few tiny cysts are seen in the left lobe of the liver. A few tiny cysts are seen in the kidneys. There is no hydronephrosis. There is no adenopathy or free fluid. Ostomy is noted in the right lower quadrant. IMPRESSION: No evidence of suspicious mass or adenopathy. There are tiny cysts seen in the left lobe of the liver and in the kidneys. Electronically Signed by Trey López MD 05/04/2019 08:59 A
--- NOTE | 2019-04-30 17:23 | REP ---
MRI PELVIS WITHOUT CONTRAST: Multiple sequences obtained in the axial, coronal and sagittal planes and compared to prior CT 01/25/2019. Ostomy is again noted in the right lower quadrant. No adenopathy is seen in the pelvis. No free fluid or fluid collection is seen. Visualized osseous structures demonstrate mild arthritic changes at the sacroiliac joints bilaterally with mild subchondral marrow edema. No bone lesion is seen. There is sigmoid diverticulosis without evidence of acute diverticulitis. No pelvic mass is seen. IMPRESSION: No suspicious mass or adenopathy in the pelvis. Electronically Signed by Trey López MD 05/04/2019 08:59 A
== END ==
LOC: M RAD 04-22 12:25
PROVIDERS: ATTEND Internal Medicine Medical Oncology
DX: D61.810 Antineoplastic chemotherapy induced pancytopenia (principal); C67.9 Malignant neoplasm of bladder, unspecified; Z79.899 Other long term (current) drug therapy; Z53.8 Procedure and treatment not carried out for other reasons

== ENCOUNTER → 2019-07-28 | Outpatient (CLI) | payer MEDICARE ==
[~2019-07-28] MED LIST changes: +ATIV1TAB7 PO; +HALO0.052 TOP; +PROHANCE 279.3MG/ML 15ML VIAL (A9576) As Ordered ONE
--- NOTE | 2019-07-28 18:57 | REP ---
MRI ABDOMEN: MRI abdomen performed utilizing multiple axial and coronal sequences prior to and following the intravenous administration of 6 mL ProHance. Comparison made with prior study of 04/30/2019. Once again, a few tiny cysts are seen in the left lobe of the liver. No suspicious liver mass is seen. The spleen is normal in size with no intrinsic abnormality. Adrenal glands are normal. Pancreas demonstrates no mass or evidence of pancreatic ductal dilatation. Gallbladder is grossly unremarkable. Common bile duct is not dilated. Kidneys demonstrate a few tiny cysts with no hydronephrosis. No periaortic adenopathy is seen. No free fluid is seen. Ostomy is again seen in the right lower quadrant. IMPRESSION: No change since prior study. No new mass or adenopathy. Electronically Signed by Trey López MD 07/28/2019 08:07 P
--- NOTE | 2019-07-28 19:01 | REP ---
MRI PELVIS WITH AND WITHOUT CONTRAST: COMPARISON: 04/30/2019 Multiple sequences obtained in the axial, coronal and sagittal planes prior to and following the intravenous administration of 6 mL ProHance. Once again there are degenerative changes of the lower lumbar spine and sacroiliac joints. No suspicious bone lesion is seen. No adenopathy is seen in the pelvis. There is no definite mass, status post cystectomy. No free fluid is seen. Bowel loops fill the pelvis. There is sigmoid diverticulosis again noted. An ostomy is again seen in the right lower quadrant. IMPRESSION: No change since prior study 04/30/2019. No mass or adenopathy. No free fluid. Electronically Signed by Trey López MD 07/28/2019 08:07 P
--- NOTE | 2019-07-28 19:16 | REP ---
CT CHEST WITHOUT IV CONTRAST: CT chest was performed without IV contrast. Sagittal and coronal reconstruction images are performed. Comparison is made with prior study of 05/08/2018. There is mild patchy parenchymal opacity in the right middle lobe and lingula which may represent fibro atelectatic change versus infiltrate. No suspicious nodular opacity is seen in either lung. No axillary adenopathy is seen. I do not see a significant mediastinal adenopathy. A nonenlarged precarinal lymph node is stable. There is mild atherosclerotic calcification of the thoracic aorta without aneurysm. Heart is not enlarged. There is no pleural or pericardial effusion. There are degenerative changes of the spine. IMPRESSION: Mild patchy parenchymal opacity in the lingula and right middle lobe not seen on prior study. It is most consistent with areas of mild fibro atelectasis or infiltrate. No suspicious nodule or adenopathy. Electronically Signed by Trey López MD 07/28/2019 08:08 P
== END ==
LOC: M RAD 14:07
PROVIDERS: ATTEND Internal Medicine Medical Oncology
DX: C67.9 Malignant neoplasm of bladder, unspecified (principal)
CPT/HCPCS: 71250; 72197; 74183; A9576

== ENCOUNTER → 2019-12-06 | Outpatient (CLI) | payer MEDICARE ==
[~2019-12-06] MED LIST changes: +CALC1CAP31 PO; -PROHANCE 279.3MG/ML 15ML VIAL (A9576) As Ordered ONE
[2019-12-06 11:24] LABS: HEMATOCRIT 39.2 % (42.0-52.0); HEMOGLOBIN 12.5 g/dl (13.5-17.5); MEAN CORPUSCULAR HEMOGLOBIN 30.1 pg (27.0-33.0); MEAN CORPUSCULAR HGB CONC 31.9 g/dl (32.0-36.5); MEAN CORPUSCULAR VOLUME 94.5 fl (80.0-96.0); PLATELET COUNT, AUTOMATED 291 10^3/uL (150-450); RED BLOOD COUNT 4.15 10^6/uL (4.30-6.10); WHITE BLOOD COUNT 6.3 10^3/uL (4.0-10.0)
[2019-12-06 11:36] LABS: ALBUMIN 3.7 GM/DL (3.2-5.2); BILIRUBIN,TOTAL 0.4 MG/DL (0.2-1.0); CALCIUM LEVEL 8.8 MG/DL (8.8-10.2); CREATININE FOR GFR 1.78 MG/DL (0.70-1.30); GLOMERULAR FILTRATION RATE 39.9 (>42); POTASSIUM SERUM 4.6 MEQ/L (3.5-5.1); TOTAL PROTEIN 6.7 GM/DL (6.4-8.2)
== END ==
LOC: M PLALAB 08:18
PROVIDERS: ATTEND Internal Medicine Medical Oncology
DX: C67.9 Malignant neoplasm of bladder, unspecified (principal)

== ENCOUNTER → 2020-01-17 | Outpatient (CLI) | payer MEDICARE ==
--- NOTE | 2020-01-17 11:01 | REP ---
Clinical: Bladder cancer. Technique: Axial noncontrast images from the thoracic inlet to the upper abdomen with coronal and sagittal re-formations. Comparison: 07/28/2019. Findings: Lung valderrama demonstrate moderate/advanced emphysematous disease with minimal scattered scarring. Small areas of suspected atelectasis along the medial right middle lobe and lingula again noted . No obvious acute nodule or mass lesion. No effusion. No pneumothorax. Tracheobronchial tree is patent. Mediastinal lymph nodes measuring up to approximately 11 mm are unchanged. Atherosclerotic changes to the thoracic aorta and coronary arteries noted without aortic aneurysm or cardiomegaly. No pericardial effusion. Surrounding musculoskeletal structures demonstrate age-related changes without obvious acute focal osseous abnormality. Impression: 1. Emphysematous disease with minimal scarring and small areas of presumed atelectasis similar to prior examination. 2. No obvious nodule or mass lesion to suggest metastatic disease. Electronically Signed by Lorenzo Dooley MD 01/17/2020 10:52 A
--- NOTE | 2020-01-17 12:33 | REP ---
Clinical: History of bladder cancer. Technique: Axial and coronal T1 and T2-weighted sequences performed without contrast. Comparison: 07/28/2019, 04/30/2019. Findings: Liver demonstrates stable small subcentimeter cysts primarily in the left lobe and no obvious focal hepatic lesion identified to suggest metastatic disease. Spleen, pancreas, gallbladder, and bilateral adrenal glands are normal. Kidneys are essentially unremarkable. A few incidental subcentimeter renal cysts are again identified. There is no evidence for hydronephrosis or perinephric stranding. A urostomy via the right anterior abdominal wall is noted. There is no evidence for ascites. Visualized portions of the enteric system are grossly unremarkable. Visualized osseous structures appear normal. Impression: Few stable subcentimeter hepatic and renal cysts again noted. No evidence for metastatic disease. Electronically Signed by Lorenzo Dooley MD 01/17/2020 12:24 P
--- NOTE | 2020-01-20 11:20 | REP ---
Clinical: History of bladder cancer. Technique: Axial and coronal T1 and T2-weighted sequences performed without contrast. Comparison: 07/28/2019 Findings: The patient is again noted to be status post cystectomy and prostatectomy with a urostomy via the right anterior abdominopelvic wall. Visualized small and large bowel is grossly unremarkable. No significant ascites, obvious adenopathy, or definite mass lesion is appreciated to suggest recurrence or metastatic disease. Surrounding osseous structures demonstrate generalized age-related changes without obvious focal acute abnormality. Surrounding musculature and soft tissues appear normal. Impression: 1. Evidence of prior cystectomy/prostatectomy and urostomy. 2. No evidence for recurrence or metastatic disease. No ascites. No adenopathy. Electronically Signed by Lorenzo Dooley MD 01/20/2020 11:11 A
== END ==
LOC: M RAD 09:55
PROVIDERS: ATTEND Internal Medicine Medical Oncology
DX: C67.9 Malignant neoplasm of bladder, unspecified (principal); J43.9 Emphysema, unspecified; I70.0 Atherosclerosis of aorta; I25.10 Atherosclerotic heart disease of native coronary artery without angina pectoris

== ENCOUNTER → 2021-01-08 | Outpatient (CLI) | payer MEDICARE ==
[~2021-01-08] MED LIST changes: +LISI10TA22 PO; -LISI10TA4 PO
--- NOTE | 2021-01-08 15:55 | REP ---
INDICATION: BLADDER CA. COMPARISON: Multiple the latest 01/25/2019 also without contrast TECHNIQUE: Standard helical technique without intravenous or oral bowel preparatory contrast administration. This limits the exam. FINDINGS: The lung bases are clear and unchanged. Limited evaluation of the liver, gallbladder, spleen, pancreas, adrenal glands, and kidneys shows no gross abnormality or significant changes from the prior exam. The abdominal aorta and para-aortic regions are unchanged. No mass or adenopathy has developed. There is no free fluid or free air. Right upper quadrant postoperative changes are noted and appear stable. The urostomy site is unchanged. There is a left inguinal hernia which contains small bowel. This represents a change from the prior exam. Bone window technique throughout the examination shows chronic L3 and L4 changes which have worsened somewhat compared to the prior exam. The osseous structures are otherwise unchanged. IMPRESSION: 1. Left inguinal hernia as described above. 2. Worsened osseous changes seen at L3 and L4 consider follow-up with MRI. 3. Other findings as described above. <Electronically signed by Javier Hu > 01/08/21 [id number]
== END ==
LOC: M RAD 14:08
PROVIDERS: ATTEND Specialist
DX: C67.9 Malignant neoplasm of bladder, unspecified (principal)

== ENCOUNTER → 2021-03-28 | Outpatient (CLI) | payer MEDICARE ==
--- NOTE | 2021-03-28 10:07 | REP ---
INDICATION: SCREENING. COMPARISON: Multiple the latest 01/17/2020 TECHNIQUE: Axial noncontrast images from the thoracic inlet to the upper abdomen using low-dose lung screening technique (LDCT). As per the protocol only lung window images were sent to the read station for interpretation. FINDINGS: There is stable biapical pleuroparenchymal scarring. Emphysematous changes are again noted status quo. No new abnormal nodules, masses, or opacities have developed. There is an incidental calcified granuloma in the left lower lobe. Grossly, the mediastinum and pulmonary korin are unchanged. Grossly, the imaged upper abdomen and imaged osseous structures are unchanged. IMPRESSION: Stable lung rads category 1 low-dose screening CT examination of the lungs. There are no abnormal nodules. <Electronically signed by Javier Hu > 03/28/21 100
== END ==
LOC: M RAD 09:20
PROVIDERS: ATTEND Family Medicine
DX: Z12.2 Encounter for screening for malignant neoplasm of respiratory organs (principal); Z87.891 Personal history of nicotine dependence

== ENCOUNTER → 2021-05-22 | Outpatient (REF) | payer MEDICARE | LOC: M LAB REF 12:58 | PROVIDERS: ATTEND Internal Medicine Nephrology | DX: N17.9 Acute kidney failure, unspecified (principal) ==

== ENCOUNTER → 2021-09-21 | Outpatient (REF) | payer MEDICARE ==
[~2021-09-21] MED LIST changes: -LEVO500T3 PO; +LEVO500T4 PO
[2021-09-21 15:23] LABS: CHOLESTEROL LEVEL 183 MG/DL (<200); CHOLESTEROL RISK RATIO 2.407 (<5); FERRITIN 137 NG/ML (26-388); FREE T4 1.02 NG/DL (0.76-1.46); HDL CHOLESTEROL 76 MG/DL (>40); LDL CHOLESTEROL 89 MG/DL (<100); NON-HDL-C 107 MG/DL; PTH INTACT 108.2 PG/ML (18.5-88.0); TOTAL PROTEIN 6.9 GM/DL (6.4-8.2); TRIGLYCERIDES LEVEL 88 MG/DL (<150); VITAMIN B12 LEVEL 366 PG/ML (247-911)
[2021-09-21 16:34] LABS: HEMOGLOBIN A1c 5.8 %
[2021-09-24 10:53] LABS: ALBUMIN 4.11 GM/DL (3.29-5.55); ALBUMIN % 59.5 % (55.8-66.1); ALPHA-1-GLOBULIN % 6.1 % (2.9-4.9); ALPHA-1-GLOBULINS 0.42 GM/DL (0.17-0.41); ALPHA-2-GLOBULINS 0.89 GM/DL (0.42-0.99); ALPHA-2-GLOBULINS % 12.9 % (7.1-11.8); BETA-1-GLOBULINS 0.43 GM/DL (0.28-0.60); BETA-1-GLOBULINS % 6.3 % (4.7-7.2); BETA-2-GLOBULINS 0.36 GM/DL (0.19-0.55); BETA-2-GLOBULINS % 5.2 % (3.2-6.5); GAMMA GLOBULINS 0.69 GM/DL (0.65-1.58)
== END ==
LOC: M LABDRWAD 12:44 → M SFHCPLAZ 12:44
PROVIDERS: ATTEND Family Medicine
DX: D75.89 Other specified diseases of blood and blood-forming organs (principal); E78.5 Hyperlipidemia, unspecified; D50.9 Iron deficiency anemia, unspecified; E55.9 Vitamin D deficiency, unspecified; R73.01 Impaired fasting glucose; Z12.5 Encounter for screening for malignant neoplasm of prostate

== ENCOUNTER → 2021-12-14 | Outpatient (CLI) | payer MEDICARE ==
[~2021-12-14] MED LIST changes: +GASTROGRAFIN SOLUTION 30ML (Q9963) As Ordered ONE; +ISOVUE-370 76% 100ML VIAL As Ordered ONE
== END ==
LOC: M RAD 11:37
PROVIDERS: ATTEND Specialist
DX: C67.9 Malignant neoplasm of bladder, unspecified (principal); J98.11 Atelectasis; Z87.891 Personal history of nicotine dependence
CPT/HCPCS: 71271; 74177; Q9963; Q9967

== ENCOUNTER 2021-12-24 14:14 | Inpatient (IN) | payer MEDICARE ==
[~2021-12-24] VITALS: Ht 172.7 cm; Wt 46.6 kg
[~2021-12-24 14:14] MED LIST changes: -GASTROGRAFIN SOLUTION 30ML (Q9963) As Ordered ONE; -ISOVUE-370 76% 100ML VIAL As Ordered ONE
[2021-12-24 18:39] LABS: BASO # 0.1 10^3/uL (0.0-0.2); BASO % 0.5 % (0.0-1.0); EOS # 0.1 10^3/uL (0.0-0.5); EOS % 0.5 % (0.0-3.0); HEMATOCRIT 46.9 % (42.0-52.0); HEMOGLOBIN 15.2 g/dl (13.5-17.5); LYMPH # 1.3 10^3/uL (1.5-5.0); LYMPH % 9.6 % (24.0-44.0); MEAN CORPUSCULAR HEMOGLOBIN 29.3 pg (27.0-33.0); MEAN CORPUSCULAR HGB CONC 32.4 g/dl (32.0-36.5); MEAN CORPUSCULAR VOLUME 90.5 fl (80.0-96.0); MONO # 1.2 10^3/uL (0.0-0.8); NEUTROPHILS # 10.5 10^3/uL (1.5-8.5); NEUTROPHILS % 79.9 % (36.0-66.0); PLATELET COUNT, AUTOMATED 400 10^3/uL (150-450); RED BLOOD COUNT 5.18 10^6/uL (4.30-6.10); WHITE BLOOD COUNT 13.1 10^3/uL (4.0-10.0)
[2021-12-24 19:12] LABS: ALBUMIN 4.1 GM/DL (3.2-5.2); BILIRUBIN,DIRECT 0.1 MG/DL (0.0-0.2); BILIRUBIN,TOTAL 0.5 MG/DL (0.2-1.0); CALCIUM LEVEL 10.6 MG/DL (8.8-10.2); CREATININE FOR GFR 3.45 MG/DL (0.70-1.30); GLOMERULAR FILTRATION RATE 18.5 (>42); POTASSIUM SERUM 4.4 MEQ/L (3.5-5.1); TOTAL PROTEIN 7.8 GM/DL (6.4-8.2)
[2021-12-24] MEDS ORDERED: NS 1,000 ML IV ONE (20:25)
[2021-12-24 21:15] LABS: RSV AMPLIFICATION NEGATIVE (NEGATIVE)
[2021-12-24 22:04] LABS: APPEARANCE, URINE CLOUDY (CLEAR); BACTERIA, URINE AUTO 1+ (NEGATIVE); BILIRUBIN, URINE AUTO NEGATIVE (NEGATIVE); BLOOD, URINE BLOOD 1+ (NEGATIVE); COLOR, URINE AMBER (YELLOW); GLUCOSE, URINE (UA) AUTO NEGATIVE (NEGATIVE); KETONE, URINE AUTO TRACE mg/dL (NEGATIVE); LEUKOCYTE ESTERASE, URINE AUTO 2+ (NEGATIVE); MUCUS, URINE SMALL (NEGATIVE); NITRITE, URINE AUTO NEGATIVE (NEGATIVE); PROTEIN, URINE AUTO 3+ mg/dL (NEGATIVE); RBC, URINE AUTO 80 /HPF (0-3); SPECIFIC GRAVITY URINE AUTO 1.014 (1.002-1.035); SQUAMOUS EPITHELIAL CELL UR AU 0 /HPF (0-6); TRIPLE PHOSPHATE CRYSTALS SMALL; UROBILINOGEN, URINE AUTO 0.2 mg/dL (0.0-2.0); WBC, URINE AUTO 23 /HPF (0-3)
[2021-12-24] MEDS ORDERED: VITMTA PO (22:17)
[2021-12-24] MEDS ORDERED: HALO0.052 TOP (22:17)
[2021-12-24] MEDS ORDERED: HOME MED LIST COMPLETE! XX SCH (22:20)
[2021-12-24] MEDS ORDERED: ONDANSETRON 4MG/2ML VIAL IV ONE (22:50)
[2021-12-24] MEDS ORDERED: ALBUTEROL 90 MCG/ACT 8GM HFA INHALER INH PRN (23:40)
[2021-12-24] MEDS: NS 1,000 ML IV SCH (23:45)
[2021-12-24] MEDS ORDERED: PROMETHAZINE 25MG/ML 1ML VIAL IV PRN (23:45)
[2021-12-24] MEDS ORDERED: MOM 30ML SUSPENSION UDC PO PRN (23:45)
[2021-12-24] MEDS ORDERED: ACETAMINOPHEN TAB 650MG DOSE (2X325MG) PO PRN (23:45)
[2021-12-25] MEDS ORDERED: cefTRIAXone SOD 1 GM in D5W MINI-BAG PLUS 50 ML IV SCH ×2
[2021-12-25 00:35] VITALS: BP 134/84
[2021-12-25] MEDS: HEPARIN SOD (PORCINE) 5000UNITS/ML 1ML VIAL/SYRINGE SC SCH ×3 (05:12→20:31)
[2021-12-25 05:41] VITALS: BP 131/80
[2021-12-25 06:16] LABS: HEMATOCRIT 43.4 % (42.0-52.0); HEMOGLOBIN 13.8 g/dl (13.5-17.5); MEAN CORPUSCULAR HEMOGLOBIN 28.8 pg (27.0-33.0); MEAN CORPUSCULAR HGB CONC 31.8 g/dl (32.0-36.5); MEAN CORPUSCULAR VOLUME 90.6 fl (80.0-96.0); PLATELET COUNT, AUTOMATED 312 10^3/uL (150-450); RED BLOOD COUNT 4.79 10^6/uL (4.30-6.10)
[2021-12-25 06:45] LABS: CALCIUM LEVEL 9.4 MG/DL (8.8-10.2); CREATININE FOR GFR 3.41 MG/DL (0.70-1.30); GLOMERULAR FILTRATION RATE 18.7 (>42); POTASSIUM SERUM 3.8 MEQ/L (3.5-5.1)
[2021-12-25] MEDS: ATORVASTATIN 10 MG TAB PO SCH (08:33)
[2021-12-25] MEDS: CALCITRIOL 0.25 MCG CAP (S0169) PO SCH (08:33)
[2021-12-25] MEDS: ASPIRIN 81MG ENTERIC TABLET PO SCH (08:33)
[2021-12-25] MEDS: NS 1,000 ML IV SCH (09:51)
[2021-12-25] MEDS ORDERED: NS 1,000 ML IV ONE ×3 (10:15→16:20)
[2021-12-25 14:00] VITALS: BP 128/72
[2021-12-25 14:20] LABS: CALCIUM LEVEL 8.1 MG/DL (8.8-10.2); CREATININE FOR GFR 3.03 MG/DL (0.70-1.30); GLOMERULAR FILTRATION RATE 21.5 (>42); POTASSIUM SERUM 3.6 MEQ/L (3.5-5.1)
[2021-12-25] MEDS ORDERED: ONDANSETRON 4MG/2ML VIAL IV ONE (16:10)
[2021-12-25] MEDS ORDERED: GLUCAGON INJ 1MG VIAL SC PRN (16:20)
[2021-12-25] MEDS ORDERED: DEXTROSE 50% 50 ML SYRINGE IV PRN (16:20)
[2021-12-25] MEDS ORDERED: GLUCOSE 4GM CHEW TABLET PO PRN (16:20)
[2021-12-25 16:50] LABS: BASO % 0.3 % (0.0-1.0); EOS % 0.1 % (0.0-3.0); HEMATOCRIT 36.2 % (42.0-52.0); LYMPH # 0.9 10^3/uL (1.5-5.0); LYMPH % 5.7 % (24.0-44.0); MEAN CORPUSCULAR HGB CONC 32.6 g/dl (32.0-36.5); MEAN CORPUSCULAR VOLUME 92.1 fl (80.0-96.0); MONO # 0.9 10^3/uL (0.0-0.8); MONO % 5.7 % (2.0-8.0); NEUTROPHILS # 13.5 10^3/uL (1.5-8.5); NEUTROPHILS % 87.5 % (36.0-66.0); PLATELET COUNT, AUTOMATED 283 10^3/uL (150-450); RED BLOOD COUNT 3.93 10^6/uL (4.30-6.10); WHITE BLOOD COUNT 15.4 10^3/uL (4.0-10.0)
[2021-12-25 16:58] LABS: HEMOGLOBIN 11.8 g/dl (13.5-17.5)
[2021-12-25] MEDS: PIPERACILLIN/TAZOBACTAM SOD 2.25 GM in D5W MINI-BAG PLUS 50 ML IV SCH (17:00)
[2021-12-25 17:23] LABS: BILIRUBIN,TOTAL 0.3 MG/DL (0.2-1.0); CALCIUM LEVEL 8.4 MG/DL (8.8-10.2); CREATININE FOR GFR 2.72 MG/DL (0.70-1.30); GLOMERULAR FILTRATION RATE 24.3 (>42); MAGNESIUM LEVEL 1.7 MG/DL (1.8-2.4); POTASSIUM SERUM 3.7 MEQ/L (3.5-5.1); TOTAL PROTEIN 5.8 GM/DL (6.4-8.2)
[2021-12-25 18:36] LABS: CALCIUM LEVEL 8.6 MG/DL (8.8-10.2); CREATININE FOR GFR 2.58 MG/DL (0.70-1.30); GLOMERULAR FILTRATION RATE 25.8 (>42); POTASSIUM SERUM 3.4 MEQ/L (3.5-5.1)
[2021-12-25] MEDS: D5W/0.45% SODIUM CHLORIDE 1,000 ML IV SCH (20:31)
[2021-12-25 22:00] VITALS: BP 117/67
[2021-12-26 00:32] LABS: CALCIUM LEVEL 7.6 MG/DL (8.8-10.2); CREATININE FOR GFR 2.47 MG/DL (0.70-1.30); GLOMERULAR FILTRATION RATE 27.2 (>42); POTASSIUM SERUM 3.3 MEQ/L (3.5-5.1)
[2021-12-26] MEDS: PIPERACILLIN/TAZOBACTAM SOD 2.25 GM in D5W MINI-BAG PLUS 50 ML IV SCH ×3 (01:35→17:30)
[2021-12-26 06:00] VITALS: BP 112/65
[2021-12-26] MEDS: HEPARIN SOD (PORCINE) 5000UNITS/ML 1ML VIAL/SYRINGE SC SCH ×4 (06:00→22:11)
[2021-12-26 06:47] LABS: CALCIUM LEVEL 8.1 MG/DL (8.8-10.2); CREATININE FOR GFR 2.13 MG/DL (0.70-1.30); GLOMERULAR FILTRATION RATE 32.2 (>42); POTASSIUM SERUM 3.5 MEQ/L (3.5-5.1)
[2021-12-26] MEDS: D5W/0.45% SODIUM CHLORIDE 1,000 ML IV SCH ×3 (07:00→22:34)
[2021-12-26] MEDS: ATORVASTATIN 10 MG TAB PO SCH (08:52)
[2021-12-26] MEDS: CALCITRIOL 0.25 MCG CAP (S0169) PO SCH (08:52)
[2021-12-26] MEDS: ASPIRIN 81MG ENTERIC TABLET PO SCH (08:52)
[2021-12-26 12:47] LABS: CALCIUM LEVEL 7.7 MG/DL (8.8-10.2); CREATININE FOR GFR 2.31 MG/DL (0.70-1.30); GLOMERULAR FILTRATION RATE 29.4 (>42); POTASSIUM SERUM 3.4 MEQ/L (3.5-5.1)
[2021-12-26 14:00] VITALS: BP 109/59
[2021-12-26 18:58] LABS: CALCIUM LEVEL 8.4 MG/DL (8.8-10.2); GLOMERULAR FILTRATION RATE 34.7 (>42); POTASSIUM SERUM 3.1 MEQ/L (3.5-5.1)
[2021-12-26 22:00] VITALS: BP 112/60
[2021-12-27 00:26] LABS: CREATININE FOR GFR 1.92 MG/DL (0.70-1.30); GLOMERULAR FILTRATION RATE 36.3 (>42); POTASSIUM SERUM 3.3 MEQ/L (3.5-5.1)
[2021-12-27] MEDS: PIPERACILLIN/TAZOBACTAM SOD 2.25 GM in D5W MINI-BAG PLUS 50 ML IV SCH ×2 (01:26→08:49)
[2021-12-27 06:00] VITALS: BP 114/59
[2021-12-27] MEDS: HEPARIN SOD (PORCINE) 5000UNITS/ML 1ML VIAL/SYRINGE SC SCH (06:00)
[2021-12-27] MEDS ORDERED: POTASSIUM CHLORIDE 10MEQ SR TABLET PO ONE (08:25)
[2021-12-27] MEDS ORDERED: NS 1,000 ML IV ONE (08:25)
[2021-12-27] MEDS: ATORVASTATIN 10 MG TAB PO SCH (08:40)
[2021-12-27] MEDS: CALCITRIOL 0.25 MCG CAP (S0169) PO SCH (08:40)
[2021-12-27] MEDS: ASPIRIN 81MG ENTERIC TABLET PO SCH (08:41)
[2021-12-27 10:25] LABS: CREATININE FOR GFR 1.67 MG/DL (0.70-1.30); GLOMERULAR FILTRATION RATE 42.7 (>42); POTASSIUM SERUM 3.2 MEQ/L (3.5-5.1)
[2021-12-27] MEDS ORDERED: AMOX500C PO (12:54)
[2021-12-27] MEDS ORDERED: BACITAB PO (12:54)
== END 2021-12-27 13:20 | disposition home or self-care (01) | DRG 394 ==
LOC: M ED 14:14 → M ED INP 23:42 → M MS5PR 12-25 00:29
PROVIDERS: ADMIT Family Medicine; ATTEND General Practice
DX: K40.00 Bilateral inguinal hernia, with obstruction, without gangrene, not specified as recurrent (principal); N17.9 Acute kidney failure, unspecified; K56.609 Unspecified intestinal obstruction, unspecified as to partial versus complete obstruction; N39.0 Urinary tract infection, site not specified; I12.9 Hypertensive chronic kidney disease with stage 1 through stage 4 chronic kidney disease, or unspecified chronic kidney disease; J44.9 Chronic obstructive pulmonary disease, unspecified; N18.9 Chronic kidney disease, unspecified; R11.2 Nausea with vomiting, unspecified; R19.7 Diarrhea, unspecified; E86.0 Dehydration; Z85.51 Personal history of malignant neoplasm of bladder; Z79.899 Other long term (current) drug therapy; Z87.891 Personal history of nicotine dependence; Z79.82 Long term (current) use of aspirin

== ENCOUNTER → 2022-02-19 | Outpatient (CLI) | payer MEDICARE ==
[~2022-02-19] MED LIST changes: +AMOX500C PO; +BACITAB PO; +LEVO1TAB39 PO; -LEVO500T4 PO; +VITMTA PO
[2022-02-19 12:44] LABS: BASO # 0.1 10^3/uL (0.0-0.2); EOS # 0.3 10^3/uL (0.0-0.5); EOS % 3.9 % (0.0-3.0); HEMOGLOBIN 12.5 g/dl (13.5-17.5); LYMPH # 1.5 10^3/uL (1.5-5.0); LYMPH % 21.9 % (24.0-44.0); MEAN CORPUSCULAR HGB CONC 32.1 g/dl (32.0-36.5); MEAN CORPUSCULAR VOLUME 93.5 fl (80.0-96.0); MONO # 0.9 10^3/uL (0.0-0.8); MONO % 12.4 % (2.0-8.0); NEUTROPHILS # 4.1 10^3/uL (1.5-8.5); NEUTROPHILS % 59.5 % (36.0-66.0); PLATELET COUNT, AUTOMATED 293 10^3/uL (150-450); RED BLOOD COUNT 4.17 10^6/uL (4.30-6.10)
[2022-02-19 14:13] LABS: ALBUMIN 3.4 GM/DL (3.2-5.2); CALCIUM LEVEL 9.2 MG/DL (8.8-10.2); CREATININE FOR GFR 1.81 MG/DL (0.70-1.30); GLOMERULAR FILTRATION RATE 38.8 (>42); PHOSPHORUS LEVEL 3.7 MG/DL (2.5-4.9); POTASSIUM SERUM 4.3 MEQ/L (3.5-5.1)
== END ==
LOC: M ADAMS 11:50
PROVIDERS: ATTEND Family Medicine
DX: Z87.440 Personal history of urinary (tract) infections (principal); D75.89 Other specified diseases of blood and blood-forming organs

== ENCOUNTER → 2022-03-24 | Outpatient (CLI) | payer MEDICARE ==
[~2022-03-24] MED LIST changes: +HYDR-3715 PO; +LEVOTAB10; +TRIA1CR80
== END ==
LOC: M LABSMTC 09:54
PROVIDERS: ATTEND Anesthesiology
DX: Z01.818 Encounter for other preprocedural examination (principal); Z11.52 Encounter for screening for COVID-19

== ENCOUNTER 2022-03-27 06:04 | Day surgery (SDC) | payer MEDICARE ==
[~2022-03-27] VITALS: Ht 170.2 cm; Wt 52.6 kg
[~2022-03-27 06:04] MED LIST changes: -HYDR-3715 PO; -LEVOTAB10; -TRIA1CR80
[2022-03-27] MEDS ORDERED: LR 1,000 ML IV SCH ×2 (06:25→11:55)
[2022-03-27] MEDS ORDERED: LEVOTAB10 (06:29)
[2022-03-27] MEDS ORDERED: TRIA1CR80 (06:29)
[2022-03-27] MEDS ORDERED: PIPERACILLIN/TAZOBACTAM SOD 3.375 GM in D5W MINI-BAG PLUS 50 ML IV ONE (07:00)
[2022-03-27] MEDS ORDERED: IPRATROPIUM 0.5MG/ALBUTEROL 2.5MG INH SOL UD 3ML (DUONEB) NEB ONE (07:10)
[2022-03-27] MEDS ORDERED: BUPIVACAINE HCL 0.25% 30ML VIAL As Ordered ONE (07:18)
[2022-03-27] MEDS ORDERED: ROCURONIUM BROMIDE 50 MG/5 ML VIAL As Ordered ONE ×2 (07:24→09:08)
[2022-03-27] MEDS ORDERED: ONDANSETRON 4MG 2ML VIAL As Ordered ONE (07:24)
[2022-03-27] MEDS ORDERED: dexameTHASONE 4 MG/ML 1ML VIAL (J1100 PER 1MG) As Ordered ONE (07:24)
[2022-03-27] MEDS ORDERED: fentaNYL 250 MCG/5 ML INJECTION As Ordered ONE (07:24)
[2022-03-27] MEDS ORDERED: propofoL 200 MG/20 ML VIAL As Ordered ONE (07:24)
[2022-03-27] MEDS ORDERED: LIDOCAINE 2% 100MG/5ML SDV (FOR ANES.) As Ordered ONE (07:24)
[2022-03-27] MEDS ORDERED: MIDAZOLAM INJ 2MG/2ML VIAL (J2250 PER 1MG) As Ordered ONE (07:25)
[2022-03-27] MEDS ORDERED: PHENYLephrine 500MCG 5ML (100MCG/ML) SYRINGE As Ordered ONE ×2 (08:10→10:45)
[2022-03-27] MEDS ORDERED: ePHEDrine SULFATE 25 MG/5 ML(5MG/ML) SYRINGE As Ordered ONE ×2 (08:10→10:27)
[2022-03-27] MEDS ORDERED: ACETAMINOPHEN 1000MG 100ML IV BTL (OFIRMEV) (J0131 PER 10MG) As Ordered ONE (10:20)
[2022-03-27] MEDS ORDERED: KETOROLAC 60MG 2ML VIAL As Ordered ONE (10:20)
[2022-03-27] MEDS ORDERED: SUGAMMADEX SODIUM 500 MG/5 ML VIAL (BRIDION) As Ordered ONE (10:20)
[2022-03-27] MEDS ORDERED: HYDROmorphone HCL 2MG/ML 1ML VIAL As Ordered ONE (10:20)
[2022-03-27] MEDS ORDERED: BUPIVACAINE LIPOSOME/PF 1.3% 20ML VIAL (13.3MG/ML)(EXPAREL) As Ordered ONE (10:48)
[2022-03-27] MEDS ORDERED: BUPIVACAINE HCL 0.25% 10ML VIAL As Ordered ONE (10:48)
[2022-03-27] MEDS ORDERED: ONDANSETRON 4MG 2ML VIAL IV PRN (11:55)
[2022-03-27] MEDS ORDERED: MORPHINE 2 MG/ML 1ML VIAL IV PRN (11:55)
[2022-03-27] MEDS ORDERED: oxyCODONE 5MG TAB PO PRN (11:55)
[2022-03-27] MEDS ORDERED: fentaNYL 100 MCG/2 ML INJECTION IV PRN (11:55)
[2022-03-27 16:55] VITALS: BP 142/73
[2022-03-27] MEDS ORDERED: HYDR-3715 PO (19:14)
== END 2022-03-27 17:10 | disposition home or self-care (01) ==
LOC: M SDC 06:04
PROVIDERS: ATTEND Surgery
DX: K40.20 Bilateral inguinal hernia, without obstruction or gangrene, not specified as recurrent (principal); E78.5 Hyperlipidemia, unspecified; J44.9 Chronic obstructive pulmonary disease, unspecified; F17.210 Nicotine dependence, cigarettes, uncomplicated; Z85.51 Personal history of malignant neoplasm of bladder; Z92.21 Personal history of antineoplastic chemotherapy; Z79.82 Long term (current) use of aspirin; Z79.899 Other long term (current) drug therapy; Z88.0 Allergy status to penicillin
CPT/HCPCS: 49320; 49505; 88302; C1781; C9290; J0131; J1100; J1170; J1885; J2250; J2370; J2405; J2543; J3010; S2900

== ENCOUNTER → 2022-06-04 | Outpatient (CLI) | payer MEDICARE ==
[~2022-06-04] MED LIST changes: +HYDR-3715 PO; +LEVOTAB10; +TRIA1CR80
== END ==
LOC: M PLAIMG 09:41
PROVIDERS: ATTEND Specialist
DX: C67.9 Malignant neoplasm of bladder, unspecified (principal)

== ENCOUNTER → 2022-12-12 | Outpatient (CLI) | payer MEDICARE ==
[~2022-12-12] MED LIST changes: +ALBU8.5H; +POTA-298 PO; -POTA1TAB14 PO
== END ==
LOC: M PLAIMG 11:11
PROVIDERS: ATTEND Internal Medicine Hematology & Oncology
DX: C67.9 Malignant neoplasm of bladder, unspecified (principal); J84.89 Other specified interstitial pulmonary diseases

== ENCOUNTER → 2023-01-13 | Outpatient (CLI) | payer MEDICARE ==
[~2023-01-13] MED LIST changes: +LORA1TAB23 PO
== END ==
LOC: M PLARAD 15:49
PROVIDERS: ATTEND Internal Medicine Hematology & Oncology
DX: C67.9 Malignant neoplasm of bladder, unspecified (principal)
CPT/HCPCS: 78815; A9552

== ENCOUNTER → 2023-02-12 | Outpatient (REF) | payer MEDICARE ==
[2023-02-12 13:49] LABS: CALCIUM LEVEL 9.2 MG/DL (8.3-10.6); CREATININE FOR GFR 1.51 MG/DL (0.70-1.30); GLOMERULAR FILTRATION RATE 47.7 (>42); POTASSIUM SERUM 4.5 MMOL/L (3.5-5.1)
== END ==
LOC: M LABDRWAD 12:24
PROVIDERS: ATTEND Internal Medicine Critical Care Medicine
DX: R91.8 Other nonspecific abnormal finding of lung field (principal)

== ENCOUNTER → 2023-02-17 | Outpatient (CLI) | payer MEDICARE ==
[~2023-02-17] MED LIST changes: +ISOVUE-370 76% 100ML VIAL As Ordered ONE
== END ==
LOC: M RAD 09:33
PROVIDERS: ATTEND Internal Medicine Critical Care Medicine
DX: R91.8 Other nonspecific abnormal finding of lung field (principal); J43.9 Emphysema, unspecified
CPT/HCPCS: 71260; Q9967

== ENCOUNTER → 2023-05-21 | Outpatient (REF) | payer MEDICARE ==
[~2023-05-21] MED LIST changes: -ISOVUE-370 76% 100ML VIAL As Ordered ONE
[2023-05-21 16:18] LABS: BASO # 0.1 10^3/uL (0.0-0.2); BASO % 1.2 % (0.0-1.0); EOS # 0.5 10^3/uL (0.0-0.5); EOS % 7.8 % (0.0-3.0); HEMATOCRIT 43.2 % (42.0-52.0); LYMPH # 1.3 10^3/uL (1.5-5.0); LYMPH % 19.9 % (24.0-44.0); MEAN CORPUSCULAR HGB CONC 32.4 g/dl (32.0-36.5); MEAN CORPUSCULAR VOLUME 95.8 fl (80.0-96.0); MONO # 0.9 10^3/uL (0.0-0.8); MONO % 14.3 % (2.0-8.0); NEUTROPHILS # 3.7 10^3/uL (1.5-8.5); NEUTROPHILS % 56.3 % (36.0-66.0); PLATELET COUNT, AUTOMATED 245 10^3/uL (150-450); RED BLOOD COUNT 4.51 10^6/uL (4.30-6.10); WHITE BLOOD COUNT 6.6 10^3/uL (4.0-10.0)
[2023-05-21 16:40] LABS: HEMOGLOBIN A1c 5.6 % (4.0-6.0)
[2023-05-21 16:47] LABS: CHOLESTEROL RISK RATIO 1.97 (<5); HDL CHOLESTEROL 84.2 MG/DL (>40); LDL CHOLESTEROL 69.4 MG/DL (<100); NON-HDL-C 81.8 MG/DL; PTH INTACT 98.1 PG/ML (18.5-88.0)
== END ==
LOC: M SFHCADAM 12:09
PROVIDERS: ATTEND Family Medicine
DX: D75.89 Other specified diseases of blood and blood-forming organs (principal); E55.9 Vitamin D deficiency, unspecified; R73.01 Impaired fasting glucose; E78.5 Hyperlipidemia, unspecified

== ENCOUNTER → 2023-11-19 | Outpatient (REF) | payer MEDICARE ==
[2023-11-19 18:12] LABS: BASO # 0.1 10^3/uL (0.0-0.2); BASO % 0.7 % (0.0-1.0); EOS # 0.2 10^3/uL (0.0-0.5); EOS % 2.9 % (0.0-3.0); HEMATOCRIT 38.2 % (42.0-52.0); LYMPH % 13.6 % (24.0-44.0); MEAN CORPUSCULAR HEMOGLOBIN 30.2 pg (27.0-33.0); MEAN CORPUSCULAR HGB CONC 31.4 g/dl (32.0-36.5); MONO # 0.7 10^3/uL (0.0-0.8); MONO % 9.3 % (2.0-8.0); NEUTROPHILS # 5.1 10^3/uL (1.5-8.5); NEUTROPHILS % 72.6 % (36.0-66.0); PLATELET COUNT, AUTOMATED 392 10^3/uL (150-450); RED BLOOD COUNT 3.98 10^6/uL (4.30-6.10)
[2023-11-19 18:14] LABS: PSA SCREENING 0.06 NG/ML (< 4.00)
[2023-11-19 18:18] LABS: ALBUMIN 2.6 G/DL (3.2-5.2); BILIRUBIN,TOTAL 0.2 MG/DL (0.3-1.2); CALCIUM LEVEL 9.3 MG/DL (8.3-10.6); CREATININE FOR GFR 1.49 MG/DL (0.70-1.30); GLOMERULAR FILTRATION RATE 48.4 (>42); POTASSIUM SERUM 4.4 MMOL/L (3.5-5.1); THYROID STIMULATING HORMONE 1.203 uIU/ML (0.55-4.78); TOTAL PROTEIN 5.9 G/DL (5.7-8.2)
[2023-11-19 18:25] LABS: HEMOGLOBIN A1c 5.3 % (4.0-6.0)
== END ==
LOC: M SFHCADAM 11:02
PROVIDERS: ATTEND Family Medicine
DX: D75.89 Other specified diseases of blood and blood-forming organs (principal); I10 Essential (primary) hypertension; Z12.5 Encounter for screening for malignant neoplasm of prostate; R73.01 Impaired fasting glucose
CPT/HCPCS: 80053; 83036; 83880; 84155; 84165; 84439; 84443; 85025; G0103

== ENCOUNTER → 2024-03-24 | Outpatient (CLI) | payer MEDICARE ==
[~2024-03-24] MED LIST changes: +ONDA-284 PO; -ONDA8TAB8 PO
== END ==
LOC: M PLAIMG 13:00
PROVIDERS: ATTEND Internal Medicine Critical Care Medicine
DX: R91.8 Other nonspecific abnormal finding of lung field (principal)

== ENCOUNTER 2024-06-27 21:03 | Emergency (ER) | payer MEDICARE ==
[~2024-06-27] VITALS: Ht 172.7 cm; Wt 51.0 kg
[~2024-06-27 21:03] MED LIST changes: -HALO0.052 TOP; +HALO0.056 TOP
[2024-06-27] MEDS: IPRATROPIUM 0.5MG/ALBUTEROL 2.5MG INH SOL UD 3ML (DUONEB) NEB ONE ×2 (21:19→23:13)
[2024-06-27] MEDS: IPRATROPIUM 0.5MG/ALBUTEROL 2.5MG INH SOL UD 3ML (DUONEB) NEB PRN (21:20)
[2024-06-27 21:33] LABS: VENOUS BASE EXCESS -1.3 (-2.0-2.0); VENOUS O2 SATURATION 37.1 % (60.0-80.0); VENOUS PARTIAL PRESSURE CO2 68.5 mmHg (38.0-50.0); VENOUS PARTIAL PRESSURE O2 24.5 mmHg (30.0-50.0); VENOUS PH 7.229 UNITS (7.330-7.430); VENOUS TOTAL CO2 30.1 MMOL/L (24.0-28.0)
[2024-06-27 21:39] LABS: BASO # 0.1 10^3/uL (0.0-0.2); BASO % 0.4 % (0.0-1.0); EOS # 0.3 10^3/uL (0.0-0.5); EOS % 2.5 % (0.0-3.0); HEMATOCRIT 42.3 % (42.0-52.0); HEMOGLOBIN 13.6 g/dl (13.5-17.5); LYMPH # 0.5 10^3/uL (1.5-5.0); LYMPH % 4.4 % (24.0-44.0); MEAN CORPUSCULAR HEMOGLOBIN 31.1 pg (27.0-33.0); MEAN CORPUSCULAR HGB CONC 32.2 g/dl (32.0-36.5); MEAN CORPUSCULAR VOLUME 96.6 fl (80.0-96.0); MONO % 8.5 % (2.0-8.0); NEUTROPHILS # 9.7 10^3/uL (1.5-8.5); NEUTROPHILS % 83.9 % (36.0-66.0); PLATELET COUNT, AUTOMATED 226 10^3/uL (150-450); RED BLOOD COUNT 4.38 10^6/uL (4.30-6.10); WHITE BLOOD COUNT 11.6 10^3/uL (4.0-10.0)
[2024-06-27 22:15] LABS: ALBUMIN 3.5 G/DL (3.2-5.2); ALKALINE PHOSPHATASE 79 U/L (40-129); ALT/SGPT 22 U/L (7.0-40); AST/SGOT 19 U/L (<34); BILIRUBIN,DIRECT < 0.1 MG/DL (<0.4); BILIRUBIN,TOTAL 0.3 MG/DL (0.3-1.2); BLOOD UREA NITROGEN 25 MG/DL (9-23); CALCIUM LEVEL 9.3 MG/DL (8.3-10.6); CARBON DIOXIDE LEVEL 29 MMOL/L (20-31); CHLORIDE LEVEL 104 MMOL/L (98-107); GLOMERULAR FILTRATION RATE 51.9 (>35); GLUCOSE, FASTING 159 MG/DL (74-106); POTASSIUM SERUM 3.8 MMOL/L (3.5-5.1); SODIUM LEVEL 139 MMOL/L (136-145); TOTAL PROTEIN 6.8 G/DL (5.7-8.2)
[2024-06-27 23:14] VITALS: TEMP 97.3
[2024-06-27 23:15] VITALS: BP 140/73; O2SAT 98
[2024-06-27 23:23] VITALS: O2SAT 90
[2024-06-27] MEDS ORDERED: IPRA0.00 INH (23:29)
[2024-06-27] MEDS ORDERED: AERO1MIS2 XX (23:29)
[2024-06-27] MEDS ORDERED: PRED20TA PO (23:29)
[2024-06-27] MEDS ORDERED: NEBU1EAC MC (23:29)
[2024-06-27] MEDS ORDERED: DOXY-441 PO (23:29)
[2024-06-27] MEDS: DOXYCYCLINE HYCLATE 100MG TABLET PO ONE (23:47)
== END 2024-06-27 23:50 | disposition home or self-care (01) ==
LOC: EDBD 21:03 → M ED 21:03
DX: J44.1 Chronic obstructive pulmonary disease with (acute) exacerbation (principal); B34.8 Other viral infections of unspecified site; I25.2 Old myocardial infarction; E78.5 Hyperlipidemia, unspecified; Z86.79 Personal history of other diseases of the circulatory system; Z88.1 Allergy status to other antibiotic agents; Z79.52 Long term (current) use of systemic steroids; Z79.82 Long term (current) use of aspirin; Z79.02 Long term (current) use of antithrombotics/antiplatelets; Z79.899 Other long term (current) drug therapy

== ENCOUNTER → 2024-07-05 | Outpatient (REF) | payer MEDICARE ==
[~2024-07-05] MED LIST changes: +AERO1MIS2 XX; +DOXY-441 PO; +IPRA0.00 INH; +NEBU1EAC MC; +PRED20TA PO
== END ==
LOC: M SFHCDERM 17:44
PROVIDERS: ATTEND Physician Assistant
DX: L57.8 Other skin changes due to chronic exposure to nonionizing radiation (principal)

== ENCOUNTER → 2024-08-11 | Outpatient (REF) | payer MEDICARE ==
[2024-08-11 19:10] LABS: BASO # 0.1 10^3/uL (0.0-0.2); EOS # 0.4 10^3/uL (0.0-0.5); EOS % 3.7 % (0.0-3.0); HEMATOCRIT 44.6 % (42.0-52.0); HEMOGLOBIN 14.4 g/dl (13.5-17.5); LYMPH # 1.4 10^3/uL (1.5-5.0); LYMPH % 13.3 % (24.0-44.0); MEAN CORPUSCULAR HEMOGLOBIN 30.6 pg (27.0-33.0); MEAN CORPUSCULAR HGB CONC 32.3 g/dl (32.0-36.5); MEAN CORPUSCULAR VOLUME 94.7 fl (80.0-96.0); MONO # 0.8 10^3/uL (0.0-0.8); MONO % 8.3 % (2.0-8.0); NEUTROPHILS # 7.4 10^3/uL (1.5-8.5); PLATELET COUNT, AUTOMATED 342 10^3/uL (150-450); RED BLOOD COUNT 4.71 10^6/uL (4.30-6.10); WHITE BLOOD COUNT 10.1 10^3/uL (4.0-10.0)
[2024-08-11 19:23] LABS: ALBUMIN 3.5 G/DL (3.2-5.2); BILIRUBIN,TOTAL 0.4 MG/DL (0.3-1.2); CALCIUM LEVEL 10.5 MG/DL (8.3-10.6); CREATININE FOR GFR 1.35 MG/DL (0.70-1.30); GLOMERULAR FILTRATION RATE 54.1 (>35); POTASSIUM SERUM 4.5 MMOL/L (3.5-5.1); TOTAL PROTEIN 6.9 G/DL (5.7-8.2)
== END ==
LOC: M LABDRWAD 17:23
PROVIDERS: ATTEND Specialist
DX: C67.9 Malignant neoplasm of bladder, unspecified (principal)

== ENCOUNTER → 2024-09-01 | Outpatient (REF) | payer MEDICARE ==
[2024-09-01 14:35] LABS: BASO # 0.1 10^3/uL (0.0-0.2); BASO % 0.9 % (0.0-1.0); EOS # 0.4 10^3/uL (0.0-0.5); EOS % 3.2 % (0.0-3.0); HEMATOCRIT 42.1 % (42.0-52.0); HEMOGLOBIN 13.4 g/dl (13.5-17.5); LYMPH # 1.3 10^3/uL (1.5-5.0); LYMPH % 10.5 % (24.0-44.0); MEAN CORPUSCULAR HEMOGLOBIN 29.8 pg (27.0-33.0); MEAN CORPUSCULAR HGB CONC 31.8 g/dl (32.0-36.5); MEAN CORPUSCULAR VOLUME 93.8 fl (80.0-96.0); MONO # 1.3 10^3/uL (0.0-0.8); MONO % 10.7 % (2.0-8.0); NEUTROPHILS # 8.9 10^3/uL (1.5-8.5); PLATELET COUNT, AUTOMATED 358 10^3/uL (150-450); RED BLOOD COUNT 4.49 10^6/uL (4.30-6.10); WHITE BLOOD COUNT 12.1 10^3/uL (4.0-10.0)
[2024-09-01 15:05] LABS: ALBUMIN 3.3 G/DL (3.2-5.2); BILIRUBIN,TOTAL 0.5 MG/DL (0.3-1.2); CALCIUM LEVEL 10.3 MG/DL (8.3-10.6); CREATININE FOR GFR 1.39 MG/DL (0.70-1.30); GLOMERULAR FILTRATION RATE 52.3 (>35); POTASSIUM SERUM 4.5 MMOL/L (3.5-5.1); TOTAL PROTEIN 6.8 G/DL (5.7-8.2)
== END ==
LOC: M LABDRWAD 12:50
PROVIDERS: ATTEND Specialist
DX: C67.9 Malignant neoplasm of bladder, unspecified (principal)

== ENCOUNTER → 2024-10-18 | Outpatient (CLI) | payer MEDICARE ==
[~2024-10-18] MED LIST changes: +LOSA25TA13 PO
[2024-10-18 13:44] LABS: BASO # 0.1 10^3/uL (0.0-0.2); BASO % 0.9 % (0.0-1.0); EOS # 0.4 10^3/uL (0.0-0.5); EOS % 4.7 % (0.0-3.0); HEMATOCRIT 39.2 % (42.0-52.0); HEMOGLOBIN 12.5 g/dl (13.5-17.5); LYMPH % 13.7 % (24.0-44.0); MEAN CORPUSCULAR HEMOGLOBIN 29.6 pg (27.0-33.0); MEAN CORPUSCULAR HGB CONC 31.9 g/dl (32.0-36.5); MEAN CORPUSCULAR VOLUME 92.9 fl (80.0-96.0); MONO # 0.7 10^3/uL (0.0-0.8); MONO % 9.2 % (2.0-8.0); NEUTROPHILS # 5.2 10^3/uL (1.5-8.5); PLATELET COUNT, AUTOMATED 281 10^3/uL (150-450); RED BLOOD COUNT 4.22 10^6/uL (4.30-6.10); WHITE BLOOD COUNT 7.4 10^3/uL (4.0-10.0)
[2024-10-18 14:17] LABS: FERRITIN 75.8 NG/ML (10.5-307.3)
[2024-10-18 14:18] LABS: TOTAL 25(OH) VITAMIN D 72.6 NG/ML (20.0-100.0)
[2024-10-18 14:19] LABS: ALBUMIN 3.4 G/DL (3.2-5.2); BILIRUBIN,TOTAL 0.3 MG/DL (0.3-1.2); CALCIUM LEVEL 9.2 MG/DL (8.3-10.6); CHOLESTEROL RISK RATIO 2.21 (<5); CREATININE FOR GFR 1.47 MG/DL (0.70-1.30); GLOMERULAR FILTRATION RATE 49.1 (>35); HDL CHOLESTEROL 69.2 MG/DL (>40); LDL CHOLESTEROL 68.6 MG/DL (<100); NON-HDL-C 83.8 MG/DL; POTASSIUM SERUM 4.4 MMOL/L (3.5-5.1); PTH INTACT 43.2 PG/ML (18.5-88.0); TOTAL PROTEIN 6.4 G/DL (5.7-8.2)
== END ==
LOC: M ADAMS 10:38
PROVIDERS: ATTEND Family Medicine
DX: D75.89 Other specified diseases of blood and blood-forming organs (principal); N18.31 Chronic kidney disease, stage 3a; E78.5 Hyperlipidemia, unspecified; E55.9 Vitamin D deficiency, unspecified

== ENCOUNTER → 2024-10-18 | Outpatient (REF) | payer MEDICARE | LOC: M SFHCPLAZ 10:33 | PROVIDERS: ATTEND Family Medicine | DX: D75.89 Other specified diseases of blood and blood-forming organs (principal); N18.31 Chronic kidney disease, stage 3a; E78.5 Hyperlipidemia, unspecified; E55.9 Vitamin D deficiency, unspecified; Z53.8 Procedure and treatment not carried out for other reasons ==

== ENCOUNTER → 2025-03-14 | Outpatient (REF) | payer MEDICARE ==
[2025-03-14 17:51] LABS: BASO # 0.0 10^3/uL (0.0-0.2); BASO % 0.6 % (0.0-1.0); EOS # 0.3 10^3/uL (0.0-0.5); EOS % 5.4 % (0.0-3.0); LYMPH # 1.1 10^3/uL (1.5-5.0); LYMPH % 24.2 % (24.0-44.0); MONO # 0.7 10^3/uL (0.0-0.8); MONO % 15.7 % (2.0-8.0); NEUTROPHILS # 2.5 10^3/uL (1.5-8.5); NEUTROPHILS % 53.7 % (36.0-66.0); PLATELET COUNT, AUTOMATED 255 10^3/uL (150-450)
[2025-03-14 17:54] LABS: ALT/SGPT 25.0 U/L (7.0-40); AST/SGOT 26.0 U/L (<34); CALCIUM LEVEL 9.1 MG/DL (8.3-10.6); CARBON DIOXIDE LEVEL 28.0 MMOL/L (20-31); CHLORIDE LEVEL 102.0 MMOL/L (98-107); CREATININE FOR GFR 1.54 MG/DL (0.70-1.30); GLOMERULAR FILTRATION RATE 45.0 (>35); POTASSIUM SERUM 4.6 MMOL/L (3.5-5.1); SODIUM LEVEL 137.0 MMOL/L (136-145)
== END ==
LOC: M LABDRWAD 16:53
PROVIDERS: ATTEND Specialist
DX: C67.9 Malignant neoplasm of bladder, unspecified (principal)

== ENCOUNTER → 2025-03-29 | Outpatient (CLI) | payer MEDICARE ==
[2025-03-29 14:10] LABS: BASO # 0.1 10^3/uL (0.0-0.2); BASO % 1.0 % (0.0-1.0); EOS # 0.3 10^3/uL (0.0-0.5); EOS % 3.8 % (0.0-3.0); LYMPH # 1.1 10^3/uL (1.5-5.0); LYMPH % 13.7 % (24.0-44.0); MONO # 0.8 10^3/uL (0.0-0.8); MONO % 10.1 % (2.0-8.0); NEUTROPHILS # 5.6 10^3/uL (1.5-8.5); NEUTROPHILS % 71.0 % (36.0-66.0); PLATELET COUNT, AUTOMATED 245 10^3/uL (150-450)
[2025-03-29 14:12] LABS: ALT/SGPT 26.0 U/L (7.0-40); AST/SGOT 17.0 U/L (<34); CALCIUM LEVEL 9.5 MG/DL (8.3-10.6); CARBON DIOXIDE LEVEL 31.0 MMOL/L (20-31); CHLORIDE LEVEL 102.0 MMOL/L (98-107); CHOLESTEROL LEVEL 162.0 MG/DL (<200); CHOLESTEROL RISK RATIO 1.83 (<5); CREATININE FOR GFR 1.38 MG/DL (0.70-1.30); GLOMERULAR FILTRATION RATE 51.4 (>35); LDL CHOLESTEROL 62.5 MG/DL (<100); NON-HDL-C 73.5 MG/DL; POTASSIUM SERUM 5.0 MMOL/L (3.5-5.1); SODIUM LEVEL 139.0 MMOL/L (136-145); TRIGLYCERIDES LEVEL 55.0 MG/DL (<150)
[2025-03-29 14:18] LABS: PTH INTACT 61.6 PG/ML (18.5-88.0)
[2025-03-29 14:19] LABS: FREE T4 1.0 NG/DL (0.89-1.76); VITAMIN B12 LEVEL 326.0 PG/ML (211-911)
[2025-03-29 14:20] LABS: TOTAL 25(OH) VITAMIN D 73.7 NG/ML (20.0-100.0)
== END ==
LOC: M PLALAB 10:45
PROVIDERS: ATTEND Family Medicine
DX: E55.9 Vitamin D deficiency, unspecified (principal); N18.31 Chronic kidney disease, stage 3a; E78.5 Hyperlipidemia, unspecified; D50.9 Iron deficiency anemia, unspecified

== ENCOUNTER → 2025-04-18 | Outpatient (CLI) | payer MEDICARE | LOC: M PLAIMG 13:53 | PROVIDERS: ATTEND Internal Medicine Critical Care Medicine | DX: R91.8 Other nonspecific abnormal finding of lung field (principal); J43.9 Emphysema, unspecified; R91.1 Solitary pulmonary nodule; R59.0 Localized enlarged lymph nodes ==

== ENCOUNTER → 2025-05-16 | Outpatient (CLI) | payer MEDICARE | LOC: M PLARAD 09:05 | PROVIDERS: ATTEND Internal Medicine Critical Care Medicine | DX: R91.8 Other nonspecific abnormal finding of lung field (principal) | CPT/HCPCS: 78815; A9552 ==